=== PATIENT | female | born 1995 | race American Indian/Alaskan Native ===

== ENCOUNTER 2016-11-18 13:37 | Emergency (ER) | payer OTHER ==
--- NOTE | 2016-11-18 14:19 | EDM.PDOC ---
ED HPI ENT - General Chief Complaint: ENT Problem Stated Complaint: [id number] THROAT FEELS SWOLLEN Time Seen by Provider: 11/18/16 14:10 Source of Information: Reports: Patient, RN, RN notes reviewed History Limitations: Reports: No limitations - History of Present Illness INITIAL COMMENTS - FREE TEXT/NARRATIVE: C/O sore throat x2 days. 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 Admits to fevers and mild headache. Denies vomiting or abdominal pain. Timing/Duration: Reports: Constant, Getting worse Location: Reports: throat Quality: Reports: Ache Improves with: Reports: None Worsens with: Reports: None Associated Symptoms: Reports: no other symptoms Treatments CASHIER PAYMENTS RECEIVED: Reports: Acetaminophen - Related Data Allergies/ADRs: Allergies Allergy/AdvReac Type Severity Reaction Status Date / Time No Known Allergies Allergy Verified 08/26/16 17:17 Home Meds: Home Meds FLUoxetine HCl [Fluoxetine HCl] 20 mg PO DAILY 06/11/16 [History] Past Medical History - Past Health History Medical/Surgical History: Denies Medical/Surgical History HEENT History: Reports: None Other HEENT History: wears glasses Cardiovascular History: Reports: None Respiratory History: Reports: None Other Respiratory History: Bronchitis Gastrointestinal History: Reports: None Genitourinary History: Reports: Pyelonephritis, UTI, recurrent 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: Dysfunctional uterine bleeding Other OB/BYN History: LMP Aug 25 Musculoskeletal History: Reports: Back pain, chronic Neurological History: Reports: None Psychiatric History: Reports: Anxiety Endocrine/Metabolic History: Reports: Obesity/BMI 30+ Hematologic History: Reports: None Immunologic History: Reports: None Oncologic (Cancer) History: Reports: None Dermatologic History: Reports: None - Infectious Disease History Infectious Disease History: Reports: None - Past Surgical History HEENT Surgical History: Reports: None Social & Family History - Family History Family Medical History: Noncontributory - Tobacco Use Smoking Status *Q: Current Every Day Smoker Years of Tobacco use: 3 Packs/Tins Daily: 0.5 Used Tobacco, but Quit: No Month Tobacco Last Used: 09/2011 Second Hand Smoke Exposure: Yes - Caffeine Use Caffeine Use: Reports: Soda Other Caffeine Use: 2 diet mt. dew per day - Alcohol Use Days Per Week of Alcohol Use: 0 - Recreational Drug Use Recreational Drug Use: No Drug Use in Last 12 Months: Yes Recreational Drug Type: Reports: Marijuana/Hashish - Living Situation & Occupation Living situation: Reports: with significant other Occupation: unemployed ED ROS ENT - Review of Systems Review Of Systems: ROS reveals no pertinent complaints other than HPI. ED EXAM, ENT - Physical Exam Exam: See Below Exam Limited By: No limitations General Appearance: alert, WD/WN, no apparent distress, obese Eye Exam: bilateral eye: normal inspection Ears: normal external exam, normal canal, hearing grossly normal, normal TMs Nose: normal inspection, normal mucousa, no blood Mouth/Throat: Normal gums, Normal lips, Normal teeth, Tonsillar erythema, Tonsillar exudates Head: atraumatic, normocephalic Neck: normal inspection, supple, non-tender, full range of motion, lymphadenopathy (R) (upper/anterior). No: lymphadenopathy (L) Respiratory/Chest: no respiratory distress, lungs clear, normal breath sounds, no accessory muscle use, chest non-tender Cardiovascular: regular rate, rhythm Back: normal inspection Extremities: normal inspection Neurological: alert, oriented, CN II-XII intact, normal cognition, normal gait, no motor/sensory deficits Psychiatric: normal affect, normal mood Skin: Warm, Dry, Intact, Normal color, No rash Course - Vital Signs Last Recorded V/S: Last Vital Signs Temp 36.6 C 11/18/16 14:00 Pulse 98 11/18/16 14:00 Resp 16 11/18/16 14:00 BP 130/87 11/18/16 14:00 Pulse Ox 99 11/18/16 14:00 - Orders/Labs/Meds Labs: Rapid Strep: Positive Departure - Departure Time of Disposition: 14:38 Disposition: Home, Self-Care 01 Condition: good Clinical Impression: Strep pharyngitis Instructions: Strep Throat Forms: ED Department Discharge Additional Instructions: Rx: Amoxicillin 500mg Frequent saltwater gargles until improved.
[2016-11-18 14:26] VITALS: BP 130/87
== END 2016-11-18 14:44 | disposition home or self-care (01) ==
LOC: DL.ED 13:37
DX: J02.0 Streptococcal pharyngitis (principal); F41.9 Anxiety disorder, unspecified; Z87.440 Personal history of urinary (tract) infections; E66.9 Obesity, unspecified; F17.210 Nicotine dependence, cigarettes, uncomplicated
CPT/HCPCS: 87430; 99283

== ENCOUNTER 2016-12-02 22:43 | Emergency (ER) | payer OTHER ==
[2016-12-02] MEDS ORDERED: Ondansetron 4 MG/2 ML SDV IV ONE (22:54)
[2016-12-02] MEDS ORDERED: methylPREDNISolone Sodium Succinate 125 MG/2 ML SDV IVPUSH ONE (22:54)
[2016-12-02] MEDS ORDERED: Famotidine 20 MG/2 ML SDV IVPUSH ONE (22:55)
[2016-12-02] MEDS ORDERED: diphenhydrAMINE 50 MG/ML SDV IVPUSH ONE ×2 (22:55→23:59)
[2016-12-02] MEDS ORDERED: EPINEPHrine 1:1000 1 MG/ML SDV SUBCUT ONE (22:55)
[2016-12-02] MEDS ORDERED: Sodium Chloride 0.9% 1,000 ML IV SCH (23:00)
--- NOTE | 2016-12-02 23:07 | EDM.PDOC ---
<Asia Arevalo - Last Filed: 12/02/16 23:38> ED HPI Allergic Reaction - General Stated Complaint: FEELS LIKE CANT BREATHE Time Seen by Provider: 12/02/16 23:02 Source of Information: Reports: Patient History Limitations: Reports: No limitations - History of Present Illness INITIAL COMMENTS - FREE TEXT/NARRATIVE: Yuliet Gonsalez is a 21 year old female presenting to the ED with a one hour history of tongue swelling, facial rash, and shortness of breath. She was sitting at home watching TV when her symptoms developed. They have been getting worse since onset. She just took her last dose of a 10 day course of amoxicillin strep pharyngitis this morning. She denies any history of allergic reactions. She had associated nausea and an episode of diarrhea when symptoms started. - Related Data Allergies/ADRs: Allergies Allergy/AdvReac Type Severity Reaction Status Date / Time No Known Allergies Allergy Verified 12/02/16 23:07 Home Meds: Home Meds FLUoxetine HCl [Fluoxetine HCl] 20 mg PO DAILY 06/11/16 [History] Past Medical History - Past Health History Medical/Surgical History: Denies Medical/Surgical History HEENT History: Reports: None Other HEENT History: wears glasses Cardiovascular History: Reports: None Respiratory History: Reports: None Other Respiratory History: Bronchitis Gastrointestinal History: Reports: None Genitourinary History: Reports: Pyelonephritis, UTI, recurrent 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: Dysfunctional uterine bleeding Other OB/BYN History: LMP Aug 25 Musculoskeletal History: Reports: Back pain, chronic Neurological History: Reports: None Psychiatric History: Reports: Anxiety Endocrine/Metabolic History: Reports: Obesity/BMI 30+ Hematologic History: Reports: None Immunologic History: Reports: None Oncologic (Cancer) History: Reports: None Dermatologic History: Reports: None - Infectious Disease History Infectious Disease History: Reports: None - Past Surgical History HEENT Surgical History: Reports: None Social & Family History - Family History Family Medical History: Noncontributory - Tobacco Use Smoking Status *Q: Current Every Day Smoker Years of Tobacco use: 3 Packs/Tins Daily: 0.5 Used Tobacco, but Quit: No Month Tobacco Last Used: 09/2011 Second Hand Smoke Exposure: Yes - Caffeine Use Caffeine Use: Reports: Soda Other Caffeine Use: 2 diet mt. dew per day - Alcohol Use Days Per Week of Alcohol Use: 0 - Recreational Drug Use Recreational Drug Use: No Drug Use in Last 12 Months: Yes Recreational Drug Type: Reports: Marijuana/Hashish - Living Situation & Occupation Living situation: Reports: with significant other Occupation: unemployed ED ROS ALLERGIC REACTION - Review of Systems Review Of Systems: ROS reveals no pertinent complaints other than HPI. Constitutional: Reports: no symptoms. Denies: fever, chills HEENT: Reports: No symptoms. Denies: Vision change Respiratory: Reports: Shortness of Breath, Wheezing. Denies: Pleuritic Chest Pain, Cough Cardiovascular: Reports: No symptoms. Denies: Chest pain, Lightheadedness GI/Abdominal: Reports: Diarrhea, Nausea. Denies: Abdominal pain Musculoskeletal: Reports: no symptoms Skin: Reports: rash Neurological: Denies: Dizziness, Headache Psychiatric: Reports: No symptoms ED EXAM GENERAL NO PERIP PULSE - Physical Exam Exam: See Below Exam Limited By: No limitations General Appearance: alert, moderate distress Eye Exam: bilateral eye: PERRL Nose: normal inspection, normal mucosa Throat/Mouth: Normal voice, No airway compromise, Other (mild enlargment of tongue; Mallampati score of 2) Head: other (facial swelling in the maxillary area with associated erythematous macular rash over the face) Respiratory/Chest: wheezing (end expiratory wheezes to the bases bilaterally). No: respiratory distress, crackles, rales, rhonchi Cardiovascular: regular rate, rhythm GI/Abdominal: normal bowel sounds, soft, non tender, no distention Neurological: alert, oriented Skin Exam: Warm, Dry, Rash Lymphatic: no adenopathy Course - Vital Signs Last Recorded V/S: Last Vital Signs Temp 96.2 F 12/02/16 23:08 Pulse 66 12/02/16 23:08 Resp 20 12/02/16 23:08 BP 145/89 H 12/02/16 23:08 Pulse Ox 100 12/02/16 23:08 - Orders/Labs/Meds Orders: Active Orders 24 hr Category Date Time Status RT Aerosol Therapy [RC] ASDIRECTED Care 12/02/16 23:59 Active Sodium Chloride 0.9% [Normal Saline] 1,000 ml Med 12/02/16 23:00 Active IV ASDIRECTED Medication Orders Sodium Chloride (Normal Saline) 1,000 mls @ 999 mls/hr IV ASDIRECTED LEWIS Last Admin: 12/02/16 23:05 Dose: 999 mls/hr Meds: Medications Generic Name Dose Route Start Last Admin Trade Name Kayla PRN Reason Stop Dose Admin Sodium Chloride 1,000 mls @ 999 mls/hr 12/02/16 23:00 12/02/16 23:05 Normal Saline IV 999 mls/hr ASDIRECTED LEWIS Administration Discontinued Medications Generic Name Dose Route Start Last Admin Trade Name Kayla PRN Reason Stop Dose Admin Al Hydroxide/Mg Hydroxide 30 ml 12/02/16 23:37 12/02/16 23:48 Gi Cocktail PO 12/02/16 23:38 30 ml ONETIME ONE Administration Albuterol 2.5 mg 12/02/16 23:59 12/03/16 00:04 Proventil Neb Soln NEB 12/03/16 00:00 2.5 mg ONETIME ONE Administration Diphenhydramine HCl 25 mg 12/02/16 22:55 12/02/16 23:02 Benadryl IVPUSH 12/02/16 22:56 25 mg ONETIME ONE Administration Diphenhydramine HCl 25 mg 12/02/16 23:59 12/03/16 00:03 Benadryl IVPUSH 12/03/16 00:00 25 mg ONETIME ONE Administration Epinephrine HCl 0.5 mg 12/02/16 22:55 12/02/16 23:03 Adrenalin 1:1000 SUBCUT 12/02/16 22:56 0.5 mg ONETIME ONE Administration Famotidine 20 mg 12/02/16 22:55 12/02/16 23:06 Pepcid IVPUSH 12/02/16 22:56 20 mg ONETIME ONE Administration Methylprednisolone Sodium Succinate 125 mg 12/02/16 22:54 12/02/16 23:01 Solu-Medrol IVPUSH 12/02/16 22:55 125 mg ONETIME ONE Administration Ondansetron HCl 4 mg 12/02/16 22:54 12/02/16 23:06 Zofran IV 12/02/16 22:55 4 mg ONETIME ONE Administration - Re-Assessments/Exams Free Text/Narrative Re-Assessment/Exam: Patient was evaluated with a preliminary diagnosis of allergic reaction most likely secondary to amoxicillin; signs of impending anaphylaxis. IV access was obtained. NS one liter bolus hung. 0.5 mg subcutaneous epinephrine administered. Patient was also given IV pepcid, IV solumedrol, IV benadryl, and IV zofran. 12/02/16 23:08 Free Text/Narrative Re-Assessment/Exam: Patient was re-evaluated following administration of subq epinephrine, zofran, benadryl, solumedrol, and zofran. She has improvement of her symptoms and her airway shows improvement of tongue swelling, decreasing rash, and clear lung sounds. She continues to have difficulty with swallowing. A GI cocktail was ordered. Vitals stable. 12/02/16 23:38 Departure - Departure Disposition: Home, Self-Care 01 Clinical Impression: Allergic reaction Qualifiers: Encounter type: initial encounter Qualified Code(s): T78.40XA - Allergy, unspecified, initial encounter Instructions: Anaphylactic Reaction Additional Instructions: avoid penicillin or amoxicillin type medications benadryl 25mg every 6 hours x 48 hours then as needed Prednisone 20mg x1 in am then medrol dose pack per package instructions pepcid 20mg in am x 1 then continue twice daily for 6 days follow up if symptoms worsen - My Orders Last 24 Hours: My Active Orders 12/02/16 23:00 Sodium Chloride 0.9% [Normal Saline] 1,000 ml IV ASDIRECTED 12/02/16 23:59 RT Aerosol Therapy [RC] ASDIRECTED - Assessment/Plan Last 24 Hours: My Active Orders 12/02/16 23:00 Sodium Chloride 0.9% [Normal Saline] 1,000 ml IV ASDIRECTED 12/02/16 23:59 RT Aerosol Therapy [RC] ASDIRECTED <Delia Gonzalez - Last Filed: 12/03/16 00:23> Departure - Departure Time of Disposition: 00:21 Condition: good
[2016-12-02 23:11] VITALS: BP 145/89
[2016-12-02] MEDS ORDERED: GI Cocktail Oral Solution 30 ML PO ONE (23:37)
[2016-12-02] MEDS ORDERED: Albuterol 0.083% 2.5 MG/3 ML Neb Soln NEB ONE (23:59)
[2016-12-03] MEDS ORDERED: diphenhydrAMINE 25 MG Tab ONE (00:21)
[2016-12-03] MEDS ORDERED: predniSONE 20 MG Tab ONE (00:21)
[2016-12-03] MEDS ORDERED: predniSONE 20 MG Tab PO ONE (00:21)
[2016-12-03] MEDS ORDERED: Famotidine 20 MG Tab PO ONE (00:21)
[2016-12-03] MEDS ORDERED: Famotidine 20 MG Tab ONE (00:21)
[2016-12-03] MEDS ORDERED: diphenhydrAMINE 25 MG Tab PO ONE (00:21)
== END 2016-12-03 00:30 | disposition home or self-care (01) ==
LOC: DL.ED 22:43
DX: T78.40XA Allergy, unspecified, initial encounter (principal); F41.9 Anxiety disorder, unspecified; E66.9 Obesity, unspecified; F17.210 Nicotine dependence, cigarettes, uncomplicated; Z87.440 Personal history of urinary (tract) infections
CPT/HCPCS: 96361; 96372; 96374; 96375; 96376; 99285; A9270; J0171; J1200; J2405; J2930; J7030; J7620; S0028

== ENCOUNTER 2016-12-03 12:30 | Observation (INO) | payer OTHER ==
[2016-12-03] MEDS ORDERED: EPINEPHrine 1:1000 1 MG/ML SDV IM ONE ×2 (12:34→13:32)
[2016-12-03] MEDS ORDERED: diphenhydrAMINE 50 MG/ML SDV IVPUSH ONE (12:35)
[2016-12-03] MEDS ORDERED: methylPREDNISolone Sodium Succinate 125 MG/2 ML SDV IVPUSH ONE (12:35)
[2016-12-03] MEDS ORDERED: Albuterol 0.083% 2.5 MG/3 ML Neb Soln NEB ONE ×2 (12:36→13:38)
--- NOTE | 2016-12-03 12:43 | EDM.PDOC ---
ED HPI Allergic Reaction - General Stated Complaint: ANAFILACTIC SHOCK Time Seen by Provider: 12/03/16 12:35 Source of Information: Reports: Patient History Limitations: Reports: No limitations - History of Present Illness INITIAL COMMENTS - FREE TEXT/NARRATIVE: This 21 yo female patient reports to the ED with increased shortness of breath due to a possible allergic reaction to Amoxicillin. This patient was seen in the ED last night with similar symptoms. The patient reports she took her Benadryl about an hour prior to coming to the ED. The patient was given Epinephrine, Solumedrol, Benadryl, an H2 becca and a neb treatment yesterday while in the ED. The patient reports she took her last dose of amoxicillin yesterday prior to symptom onset. Symptom Onset Date: 12/02/16 Timing/Duration: Reports: Intermittent, Sudden onset Location, Skin: Reports: head, face, neck, chest Associated features: Reports: swelling Severity: severe Known identified source: possible/maybe Place of Occurrence: home Sick Contact: no Associated Symptoms: Reports: shortness of breath Similar symptoms previously: yes Improves with: Reports: None Worsens with: Reports: None Place of Occurrence: Reports: home Suspected Etiology: Reports: medication Recent Medical Care: yes - Related Data Allergies/ADRs: Allergies Allergy/AdvReac Type Severity Reaction Status Date / Time No Known Allergies Allergy Verified 12/02/16 23:07 Home Meds: Home Meds FLUoxetine HCl [Fluoxetine HCl] 20 mg PO DAILY 06/11/16 [History] Past Medical History - Past Health History Medical/Surgical History: Denies Medical/Surgical History HEENT History: Reports: None Other HEENT History: wears glasses Cardiovascular History: Reports: None Respiratory History: Reports: None Other Respiratory History: Bronchitis Gastrointestinal History: Reports: None Genitourinary History: Reports: Pyelonephritis, UTI, recurrent DAIRY 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: Dysfunctional uterine bleeding Other OB/BYN History: LMP Aug 25 Musculoskeletal History: Reports: Back pain, chronic Neurological History: Reports: None Psychiatric History: Reports: Anxiety Endocrine/Metabolic History: Reports: Obesity/BMI 30+ Hematologic History: Reports: None Immunologic History: Reports: None Oncologic (Cancer) History: Reports: None Dermatologic History: Reports: None - Infectious Disease History Infectious Disease History: Reports: None - Past Surgical History HEENT Surgical History: Reports: None Social & Family History - Family History Family Medical History: Noncontributory - Tobacco Use Smoking Status *Q: Current Every Day Smoker Years of Tobacco use: 3 Packs/Tins Daily: 0.5 Used Tobacco, but Quit: No Month Tobacco Last Used: 09/2011 Second Hand Smoke Exposure: Yes - Caffeine Use Caffeine Use: Reports: Soda Other Caffeine Use: 2 diet mt. dew per day - Alcohol Use Days Per Week of Alcohol Use: 0 - Recreational Drug Use Recreational Drug Use: No Drug Use in Last 12 Months: Yes Recreational Drug Type: Reports: Marijuana/Hashish - Living Situation & Occupation Living situation: Reports: with significant other Occupation: unemployed ED ROS ALLERGIC REACTION - Review of Systems Review Of Systems: ROS reveals no pertinent complaints other than HPI. ED EXAM GENERAL NO PERIP PULSE - Physical Exam Exam: See Below Exam Limited By: No limitations General Appearance: alert, WD/WN, severe distress, obese Eye Exam: bilateral eye: EOMI, normal inspection, PERRL Ears: normal external exam, normal canal, hearing grossly normal, normal TMs Nose: normal inspection, normal mucosa, no blood Throat/Mouth: Inflammation Head: atraumatic, normocephalic Neck: supple, non-tender, full range of motion Respiratory/Chest: no respiratory distress, lungs clear, normal breath sounds, no accessory muscle use, chest non-tender Cardiovascular: normal peripheral pulses, regular rate, rhythm, no edema, no gallop, no JVD, no murmur, no rub GI/Abdominal: normal bowel sounds, soft, non tender, no organomegaly, no distention, no abnormal bruit, no mass (Female) Exam: Deferred Rectal (Female) Exam: Deferred Back Exam: normal inspection, full range of motion, NT Extremities: normal inspection, normal range of motion, non-tender, normal capillary refill, no pedal edema Neurological: alert, oriented, CN II-XII intact, normal cognition, normal gait, normal reflexes, no motor/sensory deficits Psychiatric: normal affect, normal mood Skin Exam: Warm, Dry, Intact, Normal color, No rash Lymphatic: no adenopathy Course - Vital Signs Last Recorded V/S: Last Vital Signs Temp 36.0 C 12/03/16 13:00 Pulse 78 12/03/16 13:00 Resp 34 H 12/03/16 13:00 BP 130/82 12/03/16 13:00 Pulse Ox 100 12/03/16 13:00 - Orders/Labs/Meds Orders: Active Orders 24 hr Category Date Time Status RT Aerosol Therapy [RC] ASDIRECTED Care 12/03/16 12:36 Active RT Aerosol Therapy [RC] ASDIRECTED Care 12/03/16 13:38 Ordered Sodium Chloride 0.9% [Normal Saline] 500 ml Med 12/03/16 12:45 Active IV .BOLUS Medication Orders Sodium Chloride (Normal Saline) 500 mls @ 999 mls/hr IV .BOLUS LEWIS Last Admin: 12/03/16 12:57 Dose: 999 mls/hr Meds: Medications Generic Name Dose Route Start Last Admin Trade Name Freq PRN Reason Stop Dose Admin Sodium Chloride 500 mls @ 999 mls/hr 12/03/16 12:45 12/03/16 12:57 Normal Saline IV 999 mls/hr .BOLUS LEWIS Administration Discontinued Medications Generic Name Dose Route Start Last Admin Trade Name Freq PRN Reason Stop Dose Admin Albuterol 2.5 mg 12/03/16 12:36 12/03/16 12:53 Proventil Neb Soln NEB 12/03/16 12:37 2.5 mg ONETIME ONE Administration Albuterol 2.5 mg 12/03/16 13:38 Proventil Neb Soln NEB 12/03/16 13:39 ONETIME ONE Diphenhydramine HCl 50 mg 12/03/16 12:35 12/03/16 12:54 Benadryl IVPUSH 12/03/16 12:36 50 mg ONETIME ONE Administration Epinephrine HCl 0.5 mg 12/03/16 12:34 12/03/16 12:45 Adrenalin 1:1000 IM 12/03/16 12:35 0.5 mg ONETIME ONE Administration Epinephrine HCl 0.5 mg 12/03/16 13:32 12/03/16 13:35 Adrenalin 1:1000 IM 12/03/16 13:33 0.5 mg ONETIME ONE Administration Methylprednisolone Sodium Succinate 125 mg 12/03/16 12:35 12/03/16 12:54 Solu-Medrol IVPUSH 12/03/16 12:36 125 mg ONETIME ONE Administration Departure - Departure Time of Disposition: 13:40 Disposition: Admitted As Inpatient 64 Condition: fair Clinical Impression: Allergic reaction Qualifiers: Encounter type: initial encounter Qualified Code(s): T78.40XA - Allergy, unspecified, initial encounter Care Plan Goals: Dr. Allen was advised of the patient's history and treatments. Dr. Allen accepted the patient for continued evaluation and further management as an inpatient at [facility]. - My Orders Last 24 Hours: My Active Orders 12/03/16 12:36 RT Aerosol Therapy [RC] ASDIRECTED 12/03/16 12:45 Sodium Chloride 0.9% [Normal Saline] 500 ml IV .BOLUS 12/03/16 13:38 RT Aerosol Therapy [RC] ASDIRECTED - Assessment/Plan Last 24 Hours: My Active Orders 12/03/16 12:36 RT Aerosol Therapy [RC] ASDIRECTED 12/03/16 12:45 Sodium Chloride 0.9% [Normal Saline] 500 ml IV .BOLUS 12/03/16 13:38 RT Aerosol Therapy [RC] ASDIRECTED
[2016-12-03] MEDS ORDERED: Sodium Chloride 0.9% 500 ML IV SCH (12:45)
[2016-12-03] MEDS ORDERED: Ondansetron 4 MG Tab.DIS PO PRN (14:18)
[2016-12-03] MEDS ORDERED: Acetaminophen 325 MG Tab PO PRN (14:18)
[2016-12-03] MEDS ORDERED: Sodium Chloride 0.9% 10 ML Syringe FLUSH PRN (14:18)
[2016-12-03] MEDS ORDERED: Albuterol 0.083% 2.5 MG/3 ML Neb Soln NEB PRN (14:24)
[2016-12-03] MEDS ORDERED: EPINEPHrine 1:1000 1 MG/ML SDV IM PRN (14:25)
[2016-12-03] MEDS ORDERED: Sodium Chloride 0.9% 1,000 ML IV SCH (14:30)
--- NOTE | 2016-12-03 14:33 | PCM.HP ---
H&P History of Present Illness - General Date of Service: 12/03/16 Admit Problem/Dx: Admission Diagnosis/Problem Admission Diagnosis/Problem Allergic urticaria Source of Information: Patient, Family - History of Present Illness Initial Comments - Free Text/Narative: The patient is a 21-year-old lady with a history for anxiety. She has no history of asthma or other allergy related conditions. the patient developed a sore throat and above that 10 days prior to admission the patient was diagnosed with the pharyngitis. The patient was started on amoxicillin. The patient took last dose on 02 December During the night of 02 December the patient developed shortness of breath difficulty talking and breathing was brought to the emergency room. She was diagnosed with an allergic reaction, was given Solu Medrol Pepcid Benadryl and discharged in a stable condition. on 03 December in the morning she developed "Tongue swelling" difficulty breathing and talking, family also noted hives and facial swelling. she was brought back to the emergency room and was again treated with epinephrine Solu Medrol Pepcid Benadryl albuterol The patient improved but about an hour later again was feeling good the throat was "closing" Currently the patient has no rash, breathing comfortably but appears anxious. The patient and the family denies any other unusual exposure to food, drinks or environment - Related Data Allergies/Adverse Reactions: Allergies Allergy/AdvReac Type Severity Reaction Status Date / Time amoxicillin Allergy Anaphylactic Verified 12/03/16 14:15 Shock Home Medications: Home Meds FLUoxetine HCl [Fluoxetine HCl] 20 mg PO DAILY 06/11/16 [History] Past Medical History HEENT History: Reports: None Other HEENT History: wears glasses Cardiovascular History: Reports: None Respiratory History: Reports: None Other Respiratory History: Bronchitis Gastrointestinal History: Reports: None Genitourinary History: Reports: Pyelonephritis, UTI, recurrent BACKBREAKER History: Reports: Dysfunctional uterine bleeding Other OB/BYN History: LMP Aug 25 Musculoskeletal History: Reports: Back pain, chronic Neurological History: Reports: None Psychiatric History: Reports: Anxiety Endocrine/Metabolic History: Reports: Obesity/BMI 30+ Hematologic History: Reports: None Immunologic History: Reports: None Oncologic (Cancer) History: Reports: None Dermatologic History: Reports: None - Infectious Disease History Infectious Disease History: Reports: None - Past Surgical History HEENT Surgical History: Reports: None Social & Family History - Family History Family Medical History: Noncontributory HEENT: Denies: Allergic rhinitis Respiratory: Denies: Asthma Dermatologic: Denies: Angiodema - Tobacco Use Smoking Status *Q: Current Every Day Smoker Years of Tobacco use: 3 Packs/Tins Daily: 0.5 Used Tobacco, but Quit: No Month Tobacco Last Used: 09/2011 Second Hand Smoke Exposure: Yes - Caffeine Use Caffeine Use: Reports: Soda Other Caffeine Use: 2 diet mt. dew per day - Alcohol Use Days Per Week of Alcohol Use: 0 - Recreational Drug Use Recreational Drug Use: No Drug Use in Last 12 Months: Yes Recreational Drug Type: Reports: Marijuana/Hashish - Living Situation & Occupation Living situation: Reports: with significant other Occupation: unemployed H&P Review of Systems - Review of Systems: Review Of Systems: See Below General: Denies: fever, chills Pulmonary: Reports: Shortness of Breath, Wheezing Cardiovascular: Reports: palpitations. Denies: edema Exam - Exam Exam: See Below - Vital Signs Vital Signs: Last Vital Signs Temp 36.0 C 12/03/16 13:00 Pulse 106 H 12/03/16 13:46 Resp 34 H 12/03/16 13:00 BP 130/82 12/03/16 13:00 Pulse Ox 100 12/03/16 13:00 Weight: 99.79 kg - Exam General: alert, oriented HEENT: EOMI, Mucosa moist & pink, Other (tonsils present, but no significant erythema, speech is fluent and easy to understand) Neck: supple, trachea midline Lungs: Clear to auscultation, Normal respiratory effort, Other (able to talk in full sentences, walking in the room with no significant shortness of breath). No: Rales, Rhonchi, Stridor Cardiovascular: regular rate, regular rhythm, tachycardia (mildly) Abdomen: soft, other (obese) Extremities: normal inspection. No: edema Skin: warm, dry, intact. No: rash Neuro Extensive - Mental Status: alert, oriented x3, normal mood/affect, normal cognition Psychiatric: alert, normal affect, normal mood *Q Meaningful Use (ADM) - VTE *Q VTE Criteria *Q: - Stroke *Q Stroke Criteria *Q: - AMI *Q AMI Criteria *Q: - Problem List (1) Allergic reaction SNOMED Code(s): 517625375 ICD Code: T78.40XA - ALLERGY, UNSPECIFIED, INITIAL ENCOUNTER Status: Acute Current Visit: Yes Qualifiers: Encounter type: initial encounter Qualified Code(s): T78.40XA - Allergy, unspecified, initial encounter Problem List Initiated/Reviewed/Updated: Yes Orders Last 24hrs: Active Orders 24 hr Category Date Time Status Patient Status [ADT] Routine ADT 12/03/16 14:18 Ordered Ambulate [RC] PER UNIT ROUTINE Care 12/03/16 14:19 Ordered Antiembolic Devices [RC] PER UNIT ROUTINE Care 12/03/16 14:21 Ordered Oxygen Therapy [RC] PRN Care 12/03/16 14:18 Ordered Peripheral IV Care [RC] . DIRECTED Care 12/03/16 14:21 Ordered Pulse Oximetry [RC] CONTINUOUS Care 12/03/16 14:19 Ordered RT Aerosol Therapy [RC] ASDIRECTED Care 12/03/16 14:25 Ordered Up With Assistance [RC] ASDIRECTED Care 12/03/16 14:18 Ordered VTE/DVT Education [RC] PER UNIT ROUTINE Care 12/03/16 14:18 Ordered Vital Signs [RC] Q4H Care 12/03/16 14:18 Ordered Clear Liquid Diet [DIET] Diet 12/03/16 Dinner Ordered BASIC METABOLIC PANEL,BMP [CHEM] AM Lab 12/04/16 05:15 Ordered CBC WITH AUTO DIFF [HEME] AM Lab 12/04/16 05:15 Ordered Acetaminophen [Tylenol] Med 12/03/16 14:18 Ordered 650 mg PO Q4H PRN Albuterol [Proventil Neb Soln] Med 12/03/16 14:24 Ordered 2.5 mg NEB Q4HRRT PRN EPINEPHrine [Adrenalin 1:1000] Med 12/03/16 14:25 Ordered 0.5 mg IM .Q4H PRN FLUoxetine [PROzac] Med 12/04/16 09:00 Ordered 20 mg PO DAILY Famotidine [Pepcid] Med 12/03/16 14:30 Ordered 20 mg IVPUSH .Q8H Heparin Sodium Med 12/03/16 22:00 Ordered 5,000 units SUBCUT Q8HR Ondansetron [Zofran ODT] Med 12/03/16 14:18 Ordered 4 mg PO Q6H PRN Sodium Chloride 0.9% [Normal Saline] 1,000 ml Med 12/03/16 14:30 Ordered IV ASDIRECTED Sodium Chloride 0.9% [Saline Flush] Med 12/03/16 14:18 Ordered 10 ml FLUSH ASDIRECTED PRN diphenhydrAMINE [Benadryl] Med 12/03/16 14:30 Ordered 25 mg IVPUSH Q8H methylPREDNISolone Sod Succ [Solu-MEDROL] Med 12/03/16 14:30 Ordered 40 mg IVPUSH Q8H Antiembolic Hose [OM.PC] Per Unit Routine Oth 12/03/16 14:19 Ordered Peripheral IV Insertion Adult [OM.PC] Routine Oth 12/03/16 14:18 Ordered Resuscitation Status Routine Resus Stat 12/03/16 14:18 Ordered Medication Orders Acetaminophen (Tylenol) 650 mg PO Q4H PRN PRN Reason: Pain (Mild 1-3)/fever Albuterol (Proventil Neb Soln) 2.5 mg NEB Q4HRRT PRN PRN Reason: sob Diphenhydramine HCl (Benadryl) 25 mg IVPUSH Q8H [facility] Epinephrine HCl (Adrenalin 1:1000) 0.5 mg IM .Q4H PRN PRN Reason: hypoxemia, severe SOB, stridor Famotidine (Pepcid) 20 mg IVPUSH .Q8H [facility] Fluoxetine HCl (Prozac) 20 mg PO DAILY [facility] Heparin Sodium (Porcine) (Heparin Sodium) 5,000 units SUBCUT Q8HR [facility] Sodium Chloride (Normal Saline) 1,000 mls @ 75 mls/hr IV ASDIRECTED [facility] Methylprednisolone Sodium Succinate (Solu-Medrol) 40 mg IVPUSH Q8H [facility] Ondansetron HCl (Zofran Odt) 4 mg PO Q6H PRN PRN Reason: nausea, able to take PO Sodium Chloride (Saline Flush) 10 ml FLUSH ASDIRECTED PRN PRN Reason: Keep Vein Open Assessment/Plan Comment:: the patient was diagnosed with strep throat, was given amoxicillin. About 10 days later the patient had repeated episodes of the tongue swelling, stridor and shortness of breath, facial swelling, erythematous rash of the face and upper extremities 1. recurrent allergic reaction likely secondary to amoxicillin, family could not identify other unusual exposure the patient received multiple doses of Solu-Medrol, Benadryl, famotidine, albuterol, IM epinephrine it appears that the allergic reaction was severe and recurrent despite treatment We'll admit the patient and follow closely We'll continue treatment with scheduled Benadryl famotidine albuterol and Solu Medrol Monitor respiratory status, vital signs, skin symptoms Use IM epinephrine for severe airway reaction 2. anxiety Will follow the patient closely, steroids and epinephrine can exacerbate this 3. DVT prophylaxis will be with mobilization
[2016-12-03] MEDS ORDERED: diphenhydrAMINE 50 MG Cap PO PRN (14:41)
[2016-12-03] MEDS: Famotidine 20 MG/2 ML SDV IVPUSH SCH ×2 (16:18→22:56)
[2016-12-03] MEDS: diphenhydrAMINE 50 MG/ML SDV IVPUSH SCH ×2 (16:19→22:54)
[2016-12-03] MEDS: methylPREDNISolone Sodium Succinate 40 MG/1 ML SDV IVPUSH SCH ×2 (16:24→22:56)
[2016-12-03] MEDS: Heparin Sodium 5,000 Units/ML Vial SUBCUT SCH (22:58)
[2016-12-04] MEDS: Famotidine 20 MG/2 ML SDV IVPUSH SCH (06:17)
[2016-12-04] MEDS: methylPREDNISolone Sodium Succinate 40 MG/1 ML SDV IVPUSH SCH (06:17)
[2016-12-04] MEDS: Heparin Sodium 5,000 Units/ML Vial SUBCUT SCH (06:17)
[2016-12-04] MEDS: diphenhydrAMINE 50 MG/ML SDV IVPUSH SCH (06:17)
[2016-12-04 06:53] LABS: CHLORIDE,CL 104 mmol/L (101-111); SODIUM,NA 136 mmol/L (135-145)
[2016-12-04 07:11] VITALS: BP 118/47
[2016-12-04] MEDS ORDERED: FLUoxetine 10 MG Cap PO SCH (09:00)
--- NOTE | 2016-12-04 10:27 | PCM.DCSUM1 ---
Discharge Summary - Hospital Course Free Text/Narrative:: the patient is a 21-year-old lady who has been on amoxicillin for pharyngitis The patient then developed a sudden onset of the wheezing shortness of breath, hives Came to the emergency room was diagnosed with allergic reaction likely secondary to amoxicillin. She was discharged with Benadryl and Medrol The symptoms have returned and the patient came into the emergency room The patient subsequently received the IV steroids multiple doses of IM epinephrine admitted the overnight and the patient remained stable since admission the patient had no further rash or hives Respiratory and hemodynamic status remained stable The patient will be discharged with famotidine Benadryl tapering dose steroid She will have a prescription for EpiPen for as needed use For now the most likely offending agent is amoxicillin She was told to remember this is an allergy - Discharge Data Discharge Date: 12/04/16 Discharge Disposition: Home, Self-Care 01 Condition: Good - Discharge Diagnosis/Problem(s) (1) Allergic reaction SNOMED Code(s): 022953038 ICD Code: T78.40XA - ALLERGY, UNSPECIFIED, INITIAL ENCOUNTER Status: Acute Current Visit: Yes Qualifiers: Encounter type: initial encounter Qualified Code(s): T78.40XA - Allergy, unspecified, initial encounter - Patient Instructions Diet: Heart Healthy Diet Activity: As Tolerated - Discharge Plan Prescriptions/Med Rec: EPINEPHrine [Epipen] 0.3 mg IM ONETIME PRN #1 pen PRN Reason: sob, hives, wheezing Famotidine [Pepcid] 20 mg PO BID #10 tablet diphenhydrAMINE [Benadryl] 25 mg PO TID #6 cap methylPREDNISolone [Medrol] 4 mg PO . DIRECTED #7 tab Home Medications: Home Meds FLUoxetine HCl [Fluoxetine HCl] 20 mg PO DAILY 06/11/16 [History] EPINEPHrine [Epipen] 0.3 mg IM ONETIME PRN #1 pen 12/04/16 [Rx] Famotidine [Pepcid] 20 mg PO BID #10 tablet 12/04/16 [Rx] diphenhydrAMINE [Benadryl] 25 mg PO TID #6 cap 12/04/16 [Rx] methylPREDNISolone [Medrol] 4 mg PO . DIRECTED #7 tab 12/04/16 [Rx] - Discharge Summary/Plan Comment DC Time >30 min.: No - General Info Date of Service: 12/04/16 - Review of Systems General: Denies: Fever Pulmonary: Denies: shortness of breath, cough, wheezing Cardiovascular: Denies: Chest Pain Gastrointestinal: Denies: Abdominal pain Neurological: Denies: Confusion - Patient Data Vitals - Most Recent: Last Vital Signs Temp 36.8 C 12/04/16 07:00 Pulse 60 12/04/16 07:00 Resp 20 12/04/16 07:00 BP 118/47 L 12/04/16 07:00 Pulse Ox 97 12/04/16 07:00 Weight - Most Recent: 99.79 kg I&O - Last 24 hours: Intake & Output 12/03/16 12/04/16 12/04/16 22:59 06:59 14:59 Intake Total 441 1649 Balance 441 1649 Lab Results - Last 24 hrs: Laboratory Results - last 24 hr 12/04/16 12/04/16 Range/Units 06:17 06:17 WBC 11.9 H (5.0-10.0) 10^3/uL RBC 4.11 L (4.2-5.4) 10^6/uL Hgb 12.3 (12.0-16.0) g/dL Hct 37.2 (37.0-47.0) % MCV 90.5 (80-100) fL MCH 29.9 (27.0-34.0) pg MCHC 33.1 (33.0-35.0) g/dL Plt Count 320 (150-450) 10^3/uL Neut % (Auto) 83.3 H (42.2-75.2) % Lymph % (Auto) 12.7 L (20.5-50.1) % [place] % (Auto) 4.0 (2-8) % Eos % (Auto) 0.0 L (1.0-3.0) % Baso % (Auto) 0.0 (0.0-1.0) % Sodium 136 (135-145) mmol/L Potassium 4.3 (3.6-5.0) mmol/L Chloride 104 (101-111) mmol/L Carbon Dioxide 25.0 (21.0-31.0) mmol/L Anion Gap 11.3 BUN 11 (7-18) mg/dL Creatinine 0.7 (0.6-1.3) mg/dL Est Cr Clr Drug Dosing 130.63 mL/min Estimated GFR (MDRD) > 60 Glucose 133 H (74-105) mg/dL Calcium 8.7 (8.4-10.2) mg/dl Med Orders - Current: Current Medications Acetaminophen (Tylenol) 650 mg PO Q4H PRN PRN Reason: Pain (Mild 1-3)/fever Last Admin: 12/03/16 16:28 Dose: 650 mg Albuterol (Proventil Neb Soln) 2.5 mg NEB Q4HRRT PRN PRN Reason: sob Last Admin: 12/03/16 18:12 Dose: 2.5 mg Diphenhydramine HCl (Benadryl) 25 mg IVPUSH Q8HR [facility] Last Admin: 12/04/16 06:17 Dose: 25 mg Diphenhydramine HCl (Benadryl) 25 mg PO Q6H PRN PRN Reason: Anxiety Epinephrine HCl (Adrenalin 1:1000) 0.5 mg IM Q4H PRN PRN Reason: hypoxemia, severe SOB, stridor Last Admin: 12/03/16 18:14 Dose: 0.5 mg Famotidine (Pepcid) 20 mg IVPUSH Q8HR [facility] Last Admin: 12/04/16 06:17 Dose: 20 mg Fluoxetine HCl (Prozac) 20 mg PO DAILY [facility] Last Admin: 12/04/16 09:32 Dose: 20 mg Heparin Sodium (Porcine) (Heparin Sodium) 5,000 units SUBCUT Q8HR [facility] Last Admin: 12/04/16 06:17 Dose: 5,000 units Sodium Chloride (Normal Saline) 1,000 mls @ 75 mls/hr IV ASDIRECTED [facility] Last Admin: 12/03/16 18:20 Dose: 75 mls/hr Methylprednisolone Sodium Succinate (Solu-Medrol) 40 mg IVPUSH Q8HR [facility] Last Admin: 12/04/16 06:17 Dose: 40 mg Ondansetron HCl (Zofran Odt) 4 mg PO Q6H PRN PRN Reason: nausea, able to take PO Sodium Chloride (Saline Flush) 10 ml FLUSH ASDIRECTED PRN PRN Reason: Keep Vein Open Last Admin: 12/03/16 16:19 Dose: 10 ml Discontinued Medications Albuterol (Proventil Neb Soln) 2.5 mg NEB ONETIME ONE Stop: 12/03/16 12:37 Last Admin: 12/03/16 12:53 Dose: 2.5 mg Albuterol (Proventil Neb Soln) 2.5 mg NEB ONETIME ONE Stop: 12/03/16 13:39 Last Admin: 12/03/16 13:49 Dose: 2.5 mg Diphenhydramine HCl (Benadryl) 50 mg IVPUSH ONETIME ONE Stop: 12/03/16 12:36 Last Admin: 12/03/16 12:54 Dose: 50 mg Epinephrine HCl (Adrenalin 1:1000) 0.5 mg IM ONETIME ONE Stop: 12/03/16 12:35 Last Admin: 12/03/16 12:45 Dose: 0.5 mg Epinephrine HCl (Adrenalin 1:1000) 0.5 mg IM ONETIME ONE Stop: 12/03/16 13:33 Last Admin: 12/03/16 13:35 Dose: 0.5 mg Sodium Chloride (Normal Saline) 500 mls @ 999 mls/hr IV .BOLUS [facility] Last Admin: 12/03/16 12:57 Dose: 999 mls/hr Methylprednisolone Sodium Succinate (Solu-Medrol) 125 mg IVPUSH ONETIME ONE Stop: 12/03/16 12:36 Last Admin: 12/03/16 12:54 Dose: 125 mg - Exam Quality Assessment: Denies: supplemental oxygen General: Reports: alert, oriented Neck: Reports: supple Lungs: Reports: Clear to auscultation, Normal respiratory effort Cardiovascular: Reports: Regular Rate, Regular Rhythm Abdomen: Reports: bowel sounds present, soft, no tenderness, no distension Extremities: Reports: no edema, normal pulses Skin: Reports: warm, dry, intact. Denies: rash *Q Meaningful Use (DIS) - VTE *Q VTE Criteria *Q: - Stroke *Q Stroke Criteria *Q: - AMI *Q AMI Criteria *Q:
== END 2016-12-04 10:55 | disposition home or self-care (01) ==
LOC: DL.ED 12:30 → DL.MS 13:42 → UNDOADMOB 13:42 → DL.MS 14:18
PROVIDERS: ADMIT Internal Medicine; ATTEND Internal Medicine
DX: L50.0 Allergic urticaria (principal); T36.0X5A Adverse effect of penicillins, initial encounter; R06.2 Wheezing; R06.02 Shortness of breath; J02.0 Streptococcal pharyngitis; E66.9 Obesity, unspecified; Z68.30 Body mass index [BMI] 30.0-30.9, adult; G89.29 Other chronic pain; M54.9 Dorsalgia, unspecified; F17.210 Nicotine dependence, cigarettes, uncomplicated; Z79.899 Other long term (current) drug therapy; F12.90 Cannabis use, unspecified, uncomplicated; F41.9 Anxiety disorder, unspecified; T78.40XA Allergy, unspecified, initial encounter; Z87.440 Personal history of urinary (tract) infections
CPT/HCPCS: 36415; 80048; 85025; 94640; 96361; 96372; 96374; 96375; 96376; 99285; A9270; G0378; J0171; J1200; J1644; J2405; J2920; J2930; J7030; J7040; J7050; J7620; S0028

== ENCOUNTER 2017-01-07 12:23 | Emergency (ER) | payer OTHER ==
[2017-01-07] MEDS ORDERED: Sodium Chloride 0.9% 1,000 ML IV ONE (12:49)
[2017-01-07 13:15] LABS: CHLORIDE,CL 101 mmol/L (101-111); SODIUM,NA 138 mmol/L (135-145)
[2017-01-07 13:16] LABS: ACETAMINOPHEN < 10
--- NOTE | 2017-01-07 13:25 | EDM.PDOC ---
ED HPI GENERAL MEDICAL PROBLEM - General Chief Complaint: General Stated Complaint: ANXIETY Time Seen by Provider: 01/07/17 13:10 Source of Information: Reports: Patient History Limitations: Reports: No Limitations - History of Present Illness INITIAL COMMENTS - FREE TEXT/NARRATIVE: This 21 yo female patient reports to the ED today. The patient reports she does not know why she is here. When asked a second time, the patient reports she is "sick". Further questioning resulted in the patient reporting she has had painful urination for the past month. The patient reports she was seen for the painful urination. The patient reports she has not followed up with her primary care facility. The patient reports she is supposed to be on Fluoxitine, but is currently out of medication. The patient reports she filled her medication last month. The patient then reports that her heart is "racing". The patient was questioned about the racing heart and her response was that it is not happening now, but it was earlier. Onset: Today Duration: Constant Location: Reports: Other (unknown due to patient's vague answers) Severity: Mild Improves with: Reports: None Worsens with: Reports: None Associated Symptoms: Reports: No Other Symptoms - Related Data Allergies Allergy/AdvReac Type Severity Reaction Status Date / Time amoxicillin Allergy Severe Anaphylactic Verified 01/07/17 12:29 Shock Home Meds: Home Meds FLUoxetine HCl [Fluoxetine HCl] 10 mg PO DAILY 06/11/16 [History] EPINEPHrine [Epipen] 0.3 mg IM ONETIME PRN #1 pen 12/04/16 [Rx] Past Medical History - Past Health History Medical/Surgical History: Denies Medical/Surgical History HEENT History: Reports: None Other HEENT History: wears glasses Cardiovascular History: Reports: None Respiratory History: Reports: None Other Respiratory History: Bronchitis Gastrointestinal History: Reports: None Genitourinary History: Reports: Pyelonephritis, UTI, Recurrent 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 Other OB/BYN History: LMP Aug 25 Musculoskeletal History: Reports: Back Pain, Chronic Neurological History: Reports: None Psychiatric History: Reports: Anxiety Endocrine/Metabolic History: Reports: Obesity/BMI 30+ Hematologic History: Reports: None Immunologic History: Reports: None Oncologic (Cancer) History: Reports: None Dermatologic History: Reports: None - Infectious Disease History Infectious Disease History: Reports: None - Past Surgical History HEENT Surgical History: Reports: None Social & Family History - Family History Family Medical History: Noncontributory - Tobacco Use Smoking Status *Q: Former Smoker Years of Tobacco use: 3 Packs/Tins Daily: 0.5 Used Tobacco, but Quit: Yes Month Tobacco Last Used: August Second Hand Smoke Exposure: Yes - Caffeine Use Caffeine Use: Reports: Coffee, Energy Drinks, Soda Other Caffeine Use: 2 diet mt. dew per day Caffeine Use Comment: 3 sodas a day - Alcohol Use Days Per Week of Alcohol Use: 0 - Recreational Drug Use Recreational Drug Use: No Drug Use in Last 12 Months: Yes Recreational Drug Type: Reports: Marijuana/Hashish - Living Situation & Occupation Living situation: Reports: with Significant Other Occupation: Unemployed ED ROS GENERAL - Review of Systems Review Of Systems: ROS reveals no pertinent complaints other than HPI. ED EXAM, GENERAL - Physical Exam Exam: See Below Exam Limited By: No Limitations General Appearance: Alert, WD/WN, No Apparent Distress, Obese, Other (very slow and vague when answering questions) Eye Exam: Bilateral Eye: EOMI, Normal Inspection, PERRL Ears: Normal External Exam, Normal Canal, Hearing Grossly Normal, Normal TMs Nose: Normal Inspection, Normal Mucosa, No Blood Throat/Mouth: Normal Inspection, Normal Lips, Normal Teeth, Normal Gums, Normal Oropharynx, Normal Voice, No Airway Compromise Head: Atraumatic, Normocephalic Neck: Normal Inspection, Supple, Non-Tender, Full Range of Motion Respiratory/Chest: No Respiratory Distress, Lungs Clear, Normal Breath Sounds, No Accessory Muscle Use, Chest Non-Tender Cardiovascular: Normal Peripheral Pulses, Regular Rate, Rhythm, No Edema, No Gallop, No JVD, No Murmur, No Rub GI/Abdominal: Normal Bowel Sounds, Soft, Non-Tender, No Organomegaly, No Distention, No Abnormal Bruit, No Mass, Other (obese) (Female) Exam: Deferred Rectal (Female) Exam: Deferred Back Exam: Normal Inspection, Full Range of Motion, NT Extremities: Normal Inspection, Normal Range of Motion, Non-Tender, Normal Capillary Refill, No Pedal Edema Neurological: Alert, Oriented, CN II-XII Intact, Normal Cognition, Normal Gait, Normal Reflexes, No Motor/Sensory Deficits Psychiatric: Depressed Mood, Flat Affect Skin Exam: Warm, Dry, Intact, Normal Color, No Rash Lymphatic: No Adenopathy Course - Vital Signs Last Recorded V/S: Last Vital Signs Temp 36.6 C 01/07/17 14:21 Pulse 74 01/07/17 14:21 Resp 18 01/07/17 14:21 BP 132/67 01/07/17 14:21 Pulse Ox 100 01/07/17 14:21 - Orders/Labs/Meds Labs: Laboratory Tests 01/07/17 01/07/17 01/07/17 Range/Units 12:46 12:46 13:25 WBC 9.7 (5.0-10.0) 10^3/uL RBC 4.92 (4.2-5.4) 10^6/uL Hgb 14.6 (12.0-16.0) g/dL Hct 43.9 (37.0-47.0) % MCV 89.2 (80-100) fL MCH 29.7 (27.0-34.0) pg MCHC 33.3 (33.0-35.0) g/dL Plt Count 404 (150-450) 10^3/uL Neut % (Auto) 58.6 (42.2-75.2) % Lymph % (Auto) 31.6 (20.5-50.1) % Graham % (Auto) 8.4 H (2-8) % Eos % (Auto) 1.2 (1.0-3.0) % Baso % (Auto) 0.2 (0.0-1.0) % Sodium 138 (135-145) mmol/L Potassium 3.9 (3.6-5.0) mmol/L Chloride 101 (101-111) mmol/L Carbon Dioxide 26.0 (21.0-31.0) mmol/L Anion Gap 14.9 BUN 8 (7-18) mg/dL Creatinine 0.8 (0.6-1.3) mg/dL Est Cr Clr Drug Dosing 110.33 mL/min Estimated GFR (MDRD) > 60 BUN/Creatinine Ratio 10.00 Glucose 91 (74-105) mg/dL Calcium 9.4 (8.4-10.2) mg/dl Magnesium 1.8 (1.8-2.5) mg/dL Total Bilirubin 1.2 H (0.2-1.0) mg/dL AST 25 (10-42) IU/L ALT 26 (10-60) IU/L Alkaline Phosphatase 102 (42-121) IU/L Total Protein 8.0 (6.7-8.2) g/dl Albumin 4.5 (3.2-5.5) g/dl Globulin 3.5 Albumin/Globulin Ratio 1.29 Urine Color (YELLOW) Urine Appearance (CLEAR) Urine pH (5.0-9.0) Ur Specific [place] (1.005-1.030) Urine Protein (NEGATIVE) Urine Glucose (UA) (NEGATIVE) Urine Ketones (NEGATIVE) Urine Occult Blood (NEGATIVE) Urine Nitrite (NEGATIVE) Urine Bilirubin (NEGATIVE) Urine Urobilinogen (0.2-1.0) mg/dL Ur Leukocyte Esterase (NEGATIVE) Urine RBC /HPF Urine WBC (0-5/HPF) /HPF Ur Epithelial Cells /HPF Amorphous Sediment (0/HPF) /HPF Urine Bacteria (0-FEW/HPF) /HPF Urine HCG, Qual Salicylates < 4 Urine Opiates Screen Negative (NEGATIVE) Ur Oxycodone Screen Negative (NEGATIVE) Urine Methadone Screen Negative (NEGATIVE) Acetaminophen < 10 Ur Barbiturates Screen Negative (NEGATIVE) U Tricyclic Antidepress Negative (NEGATIVE) Ur Phencyclidine Scrn Negative (NEGATIVE) Ur Amphetamine Screen Negative (NEGATIVE) U Methamphetamines Scrn Negative (NEGATIVE) Urine MDMA Screen Negative (NEGATIVE) U Benzodiazepines Scrn Negative (NEGATIVE) Urine Cocaine Screen Negative (NEGATIVE) U Marijuana (THC) Screen Negative (NEGATIVE) Ethyl Alcohol 6 mg/dL 01/07/17 01/07/17 Range/Units 13:25 13:25 WBC (5.0-10.0) 10^3/uL RBC (4.2-5.4) 10^6/uL Hgb (12.0-16.0) g/dL Hct (37.0-47.0) % MCV (80-100) fL MCH (27.0-34.0) pg MCHC (33.0-35.0) g/dL Plt Count (150-450) 10^3/uL Neut % (Auto) (42.2-75.2) % Lymph % (Auto) (20.5-50.1) % Graham % (Auto) (2-8) % Eos % (Auto) (1.0-3.0) % Baso % (Auto) (0.0-1.0) % Sodium (135-145) mmol/L Potassium (3.6-5.0) mmol/L Chloride (101-111) mmol/L Carbon Dioxide (21.0-31.0) mmol/L Anion Gap BUN (7-18) mg/dL Creatinine (0.6-1.3) mg/dL Est Cr Clr Drug Dosing mL/min Estimated GFR (MDRD) BUN/Creatinine Ratio Glucose (74-105) mg/dL Calcium (8.4-10.2) mg/dl Magnesium (1.8-2.5) mg/dL Total Bilirubin (0.2-1.0) mg/dL AST (10-42) IU/L ALT (10-60) IU/L Alkaline Phosphatase (42-121) IU/L Total Protein (6.7-8.2) g/dl Albumin (3.2-5.5) g/dl Globulin Albumin/Globulin Ratio Urine Color Yellow (YELLOW) Urine Appearance Clear (CLEAR) Urine pH 7.0 (5.0-9.0) Ur Specific [place] 1.015 (1.005-1.030) Urine Protein Negative (NEGATIVE) Urine Glucose (UA) Negative (NEGATIVE) Urine Ketones 40 H (NEGATIVE) Urine Occult Blood Trace-intact H (NEGATIVE) Urine Nitrite Negative (NEGATIVE) Urine Bilirubin Negative (NEGATIVE) Urine Urobilinogen 4.0 H (0.2-1.0) mg/dL Ur Leukocyte Esterase Negative (NEGATIVE) Urine RBC 0-5 /HPF Urine WBC 0-5 (0-5/HPF) /HPF Ur Epithelial Cells Moderate H /HPF Amorphous Sediment Rare (0/HPF) /HPF Urine Bacteria Rare (0-FEW/HPF) /HPF Urine HCG, Qual Negative Salicylates Urine Opiates Screen (NEGATIVE) Ur Oxycodone Screen (NEGATIVE) Urine Methadone Screen (NEGATIVE) Acetaminophen Ur Barbiturates Screen (NEGATIVE) U Tricyclic Antidepress (NEGATIVE) Ur Phencyclidine Scrn (NEGATIVE) Ur Amphetamine Screen (NEGATIVE) U Methamphetamines Scrn (NEGATIVE) Urine MDMA Screen (NEGATIVE) U Benzodiazepines Scrn (NEGATIVE) Urine Cocaine Screen (NEGATIVE) U Marijuana (THC) Screen (NEGATIVE) Ethyl Alcohol mg/dL Meds: Medications Discontinued Medications Generic Name Dose Route Start Last Admin Trade Name Freq PRN Reason Stop Dose Admin Sodium Chloride 1,000 mls @ 999 mls/hr 01/07/17 12:49 01/07/17 13:00 Normal Saline IV 01/07/17 13:49 999 mls/hr .BOLUS ONE Administration Departure - Departure Time of Disposition: 14:22 Disposition: Home, Self-Care 01 Condition: fair Clinical Impression: Anxiety - Discharge Information Instructions: Panic Attacks, [id number] Forms: ED Department Discharge Care Plan Goals: The patient was advised of the examination and lab results during the visit. The patient was encouraged to follow-up with her primary care facility for refills of her medications. The patient should take her medications as directed. If the patient has any additional symptoms or concerns, the patient should visit her primary care facility or return to the emergency department.
[2017-01-07 14:21] VITALS: BP 132/67
== END 2017-01-07 14:33 | disposition home or self-care (01) ==
LOC: DL.ED 12:23
DX: F41.9 Anxiety disorder, unspecified (principal); E66.9 Obesity, unspecified; Z87.440 Personal history of urinary (tract) infections; Z87.891 Personal history of nicotine dependence; Z79.899 Other long term (current) drug therapy; Z88.1 Allergy status to other antibiotic agents; Z68.33 Body mass index [BMI] 33.0-33.9, adult
CPT/HCPCS: 36415; 80053; 80305; 81001; 81025; 83735; 85025; 96360; 99282; 99283; G0480; J7030

== ENCOUNTER 2017-01-07 19:09 | Emergency (ER) | payer OTHER ==
[2017-01-07 19:16] VITALS: BP 141/93
--- NOTE | 2017-01-07 19:59 | EDM.PDOC ---
ED HPI GENERAL MEDICAL PROBLEM - General Chief Complaint: Behavioral/Psych Stated Complaint: ANXIETY Time Seen by Provider: 01/07/17 19:15 Source of Information: Reports: Patient, Family History Limitations: Reports: Altered Mental Status - History of Present Illness INITIAL COMMENTS - FREE TEXT/NARRATIVE: c/o feeling anxious and ran out of fluoxxetine 2 weeks ago. Next appointment February 04, Responses are vague and slow. Patient was seen earlier today with similar compalint, Brought tonight by spouse concerned that patient seems confused and was telling him she was told she was and diabetic from previous visit. When questioned other drug use admits to 4 energy drinks today and 4 + diet cokes and coffee, also admits to taking box of coricedin. Either at 11 am or 11pm last night as story varied. Onset: Unknown/Unsure - Related Data Allergies Allergy/AdvReac Type Severity Reaction Status Date / Time amoxicillin Allergy Severe Anaphylactic Verified 01/07/17 12:29 Shock Home Meds: Home Meds FLUoxetine HCl [Fluoxetine HCl] 10 mg PO DAILY 06/11/16 [History] EPINEPHrine [Epipen] 0.3 mg IM ONETIME PRN #1 pen 12/04/16 [Rx] Past Medical History - Past Health History Medical/Surgical History: Denies Medical/Surgical History HEENT History: Reports: None Other HEENT History: wears glasses Cardiovascular History: Reports: None Respiratory History: Reports: None Other Respiratory History: Bronchitis Gastrointestinal History: Reports: None Genitourinary History: Reports: Pyelonephritis, UTI, Recurrent 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 Other OB/BYN History: LMP Aug 25 Musculoskeletal History: Reports: Back Pain, Chronic Neurological History: Reports: None Psychiatric History: Reports: Anxiety Endocrine/Metabolic History: Reports: Obesity/BMI 30+ Hematologic History: Reports: None Immunologic History: Reports: None Oncologic (Cancer) History: Reports: None Dermatologic History: Reports: None - Infectious Disease History Infectious Disease History: Reports: None - Past Surgical History HEENT Surgical History: Reports: None Social & Family History - Family History Family Medical History: Noncontributory - Tobacco Use Smoking Status *Q: Never Smoker Years of Tobacco use: 3 Packs/Tins Daily: 0.5 Used Tobacco, but Quit: Yes Month Tobacco Last Used: August Second Hand Smoke Exposure: No - Caffeine Use Caffeine Use: Reports: Coffee, Energy Drinks, Soda Other Caffeine Use: 2 diet mt. dew per day Caffeine Use Comment: 3 sodas a day - Alcohol Use Days Per Week of Alcohol Use: 0 - Recreational Drug Use Recreational Drug Use: No Drug Use in Last 12 Months: Yes Recreational Drug Type: Reports: Marijuana/Hashish - Living Situation & Occupation Living situation: Reports: with Significant Other Occupation: Unemployed ED ROS GENERAL - Review of Systems Review Of Systems: See Below Constitutional: Reports: No Symptoms HEENT: Reports: No Symptoms Respiratory: Reports: No Symptoms Cardiovascular: Reports: No Symptoms GI/Abdominal: Reports: No Symptoms Skin: Reports: No Symptoms Neurological: Reports: Confusion Psychiatric: Reports: Anxiety. Denies: Suicidal Ideation - Physical Exam Exam: See Below Exam Limited By: No Limitations General Appearance: Alert, No Apparent Distress Eye Exam: Bilateral Eye: EOMI, PERRL Ears: Normal External Exam Nose: Normal Inspection Throat/Mouth: Normal Inspection Head Exam: Atraumatic, Normocephalic Neck: Normal Inspection, Supple, Full Range of Motion Respiratory/Chest: No Respiratory Distress, Lungs Clear, Normal Breath Sounds Cardiovascular: Normal Peripheral Pulses, Regular Rate, Rhythm GI/Abdominal: Normal Bowel Sounds, Soft, Non-Tender Neuro Exam (Abbreviated): Alert, Oriented, Slow to Respond Back Exam: Full Range of Motion Extremities: Normal Inspection Psychiatric: Flat Affect Skin Exam: Warm, Dry, Intact, Normal Color Comments: Responses slow and vague, offers little information unless to direct questioning. Does not appear anxious. Course - Vital Signs Last Recorded V/S: Last Vital Signs Temp 97.6 F 01/07/17 19:15 Pulse 97 01/07/17 19:15 Resp 18 01/07/17 19:15 BP 141/93 H 01/07/17 19:15 Pulse Ox 97 01/07/17 19:15 - Radiology Interpretation Free Text/Narrative:: Head Ct negative - Re-Assessments/Exams Free Text/Narrative Re-Assessment/Exam: 01/08/17 01:32 Labs and UDS done during previous visit today and not repeated. Spouse not aware of patient's earlier ingestion of Coriciden tablets or side effects of medication. Patient admitted getting them from her sister. Spouse instructed that she is in no state to be caring for children and reports he will be home or will ahve some one else care for children for next 24 hours. Instructed to follow up if further concerns. Departure - Departure Time of Disposition: 19:59 Disposition: Home, Self-Care 01 Condition: fair Clinical Impression: Anxiety, Substance abuse - Discharge Information Instructions: Substance Abuse Testing Referrals: PCPMoni [Primary Care Provider] - Forms: ED Department Discharge Additional Instructions: do not leave patient unattended with children for 24 hours monitor 12 hours encourage fluids no caffeine or energy drinks follow up in am if disoriented no alcohol or other drugs.
== END 2017-01-07 20:07 | disposition home or self-care (01) ==
LOC: DL.ED 19:09
DX: F41.9 Anxiety disorder, unspecified (principal); F19.10 Other psychoactive substance abuse, uncomplicated; E66.9 Obesity, unspecified; Z68.33 Body mass index [BMI] 33.0-33.9, adult; Z88.1 Allergy status to other antibiotic agents; Z79.899 Other long term (current) drug therapy; Z87.440 Personal history of urinary (tract) infections
CPT/HCPCS: 70450; 99282; 99283

== ENCOUNTER 2017-02-27 00:51 | Emergency (ER) | payer OTHER ==
[2017-02-27 01:04] VITALS: BP 156/81
[2017-02-27] MEDS ORDERED: Sodium Chloride 0.9% 1,000 ML IV ONE (01:07)
[2017-02-27] MEDS ORDERED: Ondansetron 4 MG/2 ML SDV IV ONE (01:08)
[2017-02-27 01:48] LABS: CHLORIDE,CL 99 mmol/L (101-111); SODIUM,NA 137 mmol/L (135-145)
--- NOTE | 2017-02-27 02:39 | EDM.PDOC ---
ED HPI GENERAL MEDICAL PROBLEM - General Chief Complaint: General Stated Complaint: AMBULANCE Time Seen by Provider: 02/27/17 01:00 Source of Information: Reports: Patient History Limitations: Reports: No Limitations - History of Present Illness INITIAL COMMENTS - FREE TEXT/NARRATIVE: c/o nausea, vomiting and headache after starting clindamycin for boils under arm. Unable to keep fluids down todya. generalized headache and vision seems to not focus. No hx of skin infections per report, voices concern may be . Generalized Pain Score (Numeric/FACES): 8 - Related Data Allergies Allergy/AdvReac Type Severity Reaction Status Date / Time amoxicillin Allergy Severe Anaphylactic Verified 02/27/17 01:26 Shock Home Meds: Home Meds FLUoxetine HCl [Fluoxetine HCl] 10 mg PO DAILY 06/11/16 [History] EPINEPHrine [Epipen] 0.3 mg IM ONETIME PRN #1 pen 12/04/16 [Rx] Past Medical History - Past Health History Medical/Surgical History: Denies Medical/Surgical History HEENT History: Reports: None Other HEENT History: wears glasses Cardiovascular History: Reports: None Respiratory History: Reports: None Other Respiratory History: Bronchitis Gastrointestinal History: Reports: None Genitourinary History: Reports: Pyelonephritis, UTI, Recurrent 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 Other OB/BYN History: LMP Aug 25 Musculoskeletal History: Reports: Back Pain, Chronic Neurological History: Reports: None Psychiatric History: Reports: Anxiety Endocrine/Metabolic History: Reports: Obesity/BMI 30+ Hematologic History: Reports: None Immunologic History: Reports: None Oncologic (Cancer) History: Reports: None Dermatologic History: Reports: None - Infectious Disease History Infectious Disease History: Reports: None - Past Surgical History HEENT Surgical History: Reports: None Social & Family History - Family History Family Medical History: Noncontributory - Tobacco Use Smoking Status *Q: Never Smoker Years of Tobacco use: 3 Packs/Tins Daily: 0.5 Used Tobacco, but Quit: Yes Month Tobacco Last Used: August Second Hand Smoke Exposure: No - Caffeine Use Caffeine Use: Reports: Coffee, Energy Drinks, Soda Other Caffeine Use: 2 diet mt. dew per day Caffeine Use Comment: 3 sodas a day - Alcohol Use Days Per Week of Alcohol Use: 0 - Recreational Drug Use Recreational Drug Use: No Drug Use in Last 12 Months: Yes Recreational Drug Type: Reports: Marijuana/Hashish - Living Situation & Occupation Living situation: Reports: with Significant Other Occupation: Unemployed ED ROS GENERAL - Review of Systems Review Of Systems: See Below ED EXAM, GENERAL - Physical Exam Exam: See Below Exam Limited By: No Limitations General Appearance: Alert, Mild Distress Eye Exam: Bilateral Eye: EOMI, PERRL Ears: Normal External Exam, Normal TMs Nose: Normal Inspection Throat/Mouth: Normal Inspection Head: Atraumatic, Normocephalic Neck: Normal Inspection, Full Range of Motion Respiratory/Chest: No Respiratory Distress, Lungs Clear Cardiovascular: Normal Peripheral Pulses, Regular Rate, Rhythm Extremities: Normal Inspection Neurological: Alert, Oriented, Normal Gait. No: Normal Cognition (slow to process) Psychiatric: Anxious Skin Exam: Warm, Dry, Intact, Other (multiple cystic firm lesions to right axilla) Course - Vital Signs Last Recorded V/S: Last Vital Signs Temp 99.3 F 02/27/17 00:53 Pulse 98 02/27/17 00:53 Resp 18 02/27/17 00:53 BP 156/81 H 02/27/17 00:53 Pulse Ox 100 02/27/17 00:53 - Orders/Labs/Meds Labs: Laboratory Tests 02/27/17 02/27/17 02/27/17 Range/Units 01:18 01:18 01:18 WBC 11.9 H (5.0-10.0) 10^3/uL RBC 4.61 (4.2-5.4) 10^6/uL Hgb 13.7 (12.0-16.0) g/dL Hct 40.5 (37.0-47.0) % MCV 87.9 (80-100) fL MCH 29.7 (27.0-34.0) pg MCHC 33.8 (33.0-35.0) g/dL Plt Count 347 (150-450) 10^3/uL Neut % (Auto) 78.9 H (42.2-75.2) % Lymph % (Auto) 14.4 L (20.5-50.1) % [place] % (Auto) 6.2 (2-8) % Eos % (Auto) 0.3 L (1.0-3.0) % Baso % (Auto) 0.2 (0.0-1.0) % Sodium 137 (135-145) mmol/L Potassium 3.6 (3.6-5.0) mmol/L Chloride 99 L (101-111) mmol/L Carbon Dioxide 25.0 (21.0-31.0) mmol/L Anion Gap 16.6 BUN 7 (7-18) mg/dL Creatinine 0.7 (0.6-1.3) mg/dL Est Cr Clr Drug Dosing 126.09 mL/min Estimated GFR (MDRD) > 60 BUN/Creatinine Ratio 10.00 Glucose 115 H (74-105) mg/dL Lactic Acid 1.3 (0.5-2.2) mmol/L Calcium 9.2 (8.4-10.2) mg/dl Total Bilirubin 0.9 (0.2-1.0) mg/dL AST 23 (10-42) IU/L ALT 21 (10-60) IU/L Alkaline Phosphatase 95 (42-121) IU/L Total Protein 7.7 (6.7-8.2) g/dl Albumin 4.3 (3.2-5.5) g/dl Globulin 3.4 Albumin/Globulin Ratio 1.26 Amylase 48 (28-100) U/L Lipase 19 L (22-51) U/L HCG, Qual Negative Urine Color (YELLOW) Urine Appearance (CLEAR) Urine pH (5.0-9.0) Ur Specific [place] (1.005-1.030) Urine Protein (NEGATIVE) Urine Glucose (UA) (NEGATIVE) Urine Ketones (NEGATIVE) Urine Occult Blood (NEGATIVE) Urine Nitrite (NEGATIVE) Urine Bilirubin (NEGATIVE) Urine Urobilinogen (0.2-1.0) mg/dL Ur Leukocyte Esterase (NEGATIVE) Urine RBC /HPF Urine WBC (0-5/HPF) /HPF Ur Epithelial Cells /HPF Urine Bacteria (0-FEW/HPF) /HPF Urine Opiates Screen (NEGATIVE) Ur Oxycodone Screen (NEGATIVE) Urine Methadone Screen (NEGATIVE) Ur Barbiturates Screen (NEGATIVE) U Tricyclic Antidepress (NEGATIVE) Ur Phencyclidine Scrn (NEGATIVE) Ur Amphetamine Screen (NEGATIVE) U Methamphetamines Scrn (NEGATIVE) Urine MDMA Screen (NEGATIVE) U Benzodiazepines Scrn (NEGATIVE) Urine Cocaine Screen (NEGATIVE) U Marijuana (THC) Screen (NEGATIVE) 02/27/17 02/27/17 Range/Units 02:41 02:41 WBC (5.0-10.0) 10^3/uL RBC (4.2-5.4) 10^6/uL Hgb (12.0-16.0) g/dL Hct (37.0-47.0) % MCV (80-100) fL MCH (27.0-34.0) pg MCHC (33.0-35.0) g/dL Plt Count (150-450) 10^3/uL Neut % (Auto) (42.2-75.2) % Lymph % (Auto) (20.5-50.1) % [place] % (Auto) (2-8) % Eos % (Auto) (1.0-3.0) % Baso % (Auto) (0.0-1.0) % Sodium (135-145) mmol/L Potassium (3.6-5.0) mmol/L Chloride (101-111) mmol/L Carbon Dioxide (21.0-31.0) mmol/L Anion Gap BUN (7-18) mg/dL Creatinine (0.6-1.3) mg/dL Est Cr Clr Drug Dosing mL/min Estimated GFR (MDRD) BUN/Creatinine Ratio Glucose (74-105) mg/dL Lactic Acid (0.5-2.2) mmol/L Calcium (8.4-10.2) mg/dl Total Bilirubin (0.2-1.0) mg/dL AST (10-42) IU/L ALT (10-60) IU/L Alkaline Phosphatase (42-121) IU/L Total Protein (6.7-8.2) g/dl Albumin (3.2-5.5) g/dl Globulin Albumin/Globulin Ratio Amylase (28-100) U/L Lipase (22-51) U/L HCG, Qual Urine Color Yellow (YELLOW) Urine Appearance Slightly cloudy (CLEAR) Urine pH 8.5 (5.0-9.0) Ur Specific [place] 1.015 (1.005-1.030) Urine Protein Negative (NEGATIVE) Urine Glucose (UA) Negative (NEGATIVE) Urine Ketones Trace H (NEGATIVE) Urine Occult Blood Negative (NEGATIVE) Urine Nitrite Negative (NEGATIVE) Urine Bilirubin Negative (NEGATIVE) Urine Urobilinogen 2.0 H (0.2-1.0) mg/dL Ur Leukocyte Esterase Negative (NEGATIVE) Urine RBC 0-5 /HPF Urine WBC 0-5 (0-5/HPF) /HPF Ur Epithelial Cells Moderate H /HPF Urine Bacteria Moderate H (0-FEW/HPF) /HPF Urine Opiates Screen Positive H (NEGATIVE) Ur Oxycodone Screen Positive H (NEGATIVE) Urine Methadone Screen Negative (NEGATIVE) Ur Barbiturates Screen Negative (NEGATIVE) U Tricyclic Antidepress Negative (NEGATIVE) Ur Phencyclidine Scrn Negative (NEGATIVE) Ur Amphetamine Screen Negative (NEGATIVE) U Methamphetamines Scrn Negative (NEGATIVE) Urine MDMA Screen Negative (NEGATIVE) U Benzodiazepines Scrn Negative (NEGATIVE) Urine Cocaine Screen Negative (NEGATIVE) U Marijuana (THC) Screen Negative (NEGATIVE) Meds: Medications Discontinued Medications Generic Name Dose Route Start Last Admin Trade Name Freq PRN Reason Stop Dose Admin Sodium Chloride 1,000 mls @ 999 mls/hr 02/27/17 01:07 02/27/17 01:28 Normal Saline IV 02/27/17 02:07 999 mls/hr .BOLUS ONE Administration Ondansetron HCl 4 mg 02/27/17 01:08 02/27/17 01:33 Zofran IV 02/27/17 01:09 4 mg ONETIME ONE Administration Ondansetron HCl Confirm 02/27/17 02:42 02/27/17 02:46 Zofran Odt Administered 02/27/17 02:43 Not Given Dose 8 mg .ROUTE .STK-MED ONE Ondansetron HCl 8 mg 02/27/17 02:42 Zofran Odt PO 02/27/17 02:43 .STK-MED ONE - Re-Assessments/Exams Free Text/Narrative Re-Assessment/Exam: 03/05/17 04:24 Patient denied any drug use, UDS positive. Previous concern on prior visit with possible . Results to patient. Departure - Departure Time of Disposition: 02:34 Disposition: Home, Self-Care 01 Condition: Good Clinical Impression: Skin abscess Qualifiers: Site of cutaneous abscess: other site Qualified Code(s): L02.818 - Cutaneous abscess of other sites Adverse effects of medication Qualifiers: Encounter type: initial encounter Qualified Code(s): T88.7XXA - Unspecified adverse effect of drug or medicament, initial encounter Vomiting Qualifiers: Vomiting type: unspecified Vomiting Intractability: non-intractable Nausea presence: with nausea Qualified Code(s): R11.2 - Nausea with vomiting, unspecified - Discharge Information Instructions: Nausea, Adult Forms: ED Department Discharge Additional Instructions: zofran 4mg ODT one every 6 houras as needed for nausea #2 stop clindamycin bactrim DS one twice daily for 7 days recheck in clinic on Friday increase fluid intake warm pack to right axilla 4 times daily for 15 minutes
[2017-02-27] MEDS ORDERED: Ondansetron 4 MG Tab.DIS PO ONE (02:42)
[2017-02-27] MEDS ORDERED: Ondansetron 4 MG Tab.DIS ONE (02:42)
== END 2017-02-27 02:52 | disposition home or self-care (01) ==
LOC: DL.ED 00:51
DX: R11.2 Nausea with vomiting, unspecified (principal); L02.818 Cutaneous abscess of other sites; T36.8X5A Adverse effect of other systemic antibiotics, initial encounter; F41.9 Anxiety disorder, unspecified; E66.9 Obesity, unspecified; Z87.440 Personal history of urinary (tract) infections; Z87.891 Personal history of nicotine dependence; Z79.899 Other long term (current) drug therapy; Z88.1 Allergy status to other antibiotic agents
CPT/HCPCS: 36415; 80053; 80305; 81001; 82150; 83605; 83690; 84703; 85025; 87040; 96361; 96374; 99284; A9270; J2405; J7030

== ENCOUNTER 2017-04-01 08:53 | Emergency (ER) | payer OTHER ==
[2017-04-01 09:45] VITALS: BP 150/89
--- NOTE | 2017-04-01 10:12 | EDM.PDOC ---
ED HPI GENERAL MEDICAL PROBLEM - General Chief Complaint: Genitourinary Problem Stated Complaint: UNABLE TO URINATE. [phone] Time Seen by Provider: 04/01/17 10:00 Source of Information: Reports: Patient History Limitations: Reports: No Limitations - History of Present Illness INITIAL COMMENTS - FREE TEXT/NARRATIVE: This 22 yo female patient reports to the ED with a 2 day history of burning with urination. The patient reports that she has not been able to urinate today. The patient has not been seen in the clinic for her current symptoms. The patient reports she continues to have burning even after a catheter was placed. Onset: Today (unable to urinate) Duration: Day(s): (dysuria) Location: Reports: Abdomen (RLQ) Quality: Reports: Burning, Dull Severity: Moderate Improves with: Reports: None Worsens with: Reports: None Associated Symptoms: Reports: No Other Symptoms - Related Data Allergies Allergy/AdvReac Type Severity Reaction Status Date / Time amoxicillin Allergy Severe Anaphylactic Verified 02/27/17 01:26 Shock Penicillins Allergy Severe couldn't Verified 04/01/17 08:57 breath Home Meds: Home Meds FLUoxetine HCl [Fluoxetine HCl] 30 mg PO DAILY 06/11/16 [History] EPINEPHrine [Epipen] 0.3 mg IM ONETIME PRN #1 pen 12/04/16 [Rx] Past Medical History - Past Health History Medical/Surgical History: Denies Medical/Surgical History HEENT History: Reports: None Other HEENT History: wears glasses Cardiovascular History: Reports: None Respiratory History: Reports: None Other Respiratory History: Bronchitis Gastrointestinal History: Reports: None Genitourinary History: Reports: Pyelonephritis, UTI, 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 Other OB/BYN History: LMP Aug 25 Musculoskeletal History: Reports: Back Pain, Chronic Neurological History: Reports: None Psychiatric History: Reports: Anxiety Endocrine/Metabolic History: Reports: Obesity/BMI 30+ Hematologic History: Reports: None Immunologic History: Reports: None Oncologic (Cancer) History: Reports: None Dermatologic History: Reports: None - Infectious Disease History Infectious Disease History: Reports: None - Past Surgical History HEENT Surgical History: Reports: None Social & Family History - Family History Family Medical History: Noncontributory - Tobacco Use Smoking Status *Q: Never Smoker Years of Tobacco use: 3 Packs/Tins Daily: 0.5 Used Tobacco, but Quit: Yes Month Tobacco Last Used: August Second Hand Smoke Exposure: No - Caffeine Use Caffeine Use: Reports: Coffee, Energy Drinks, Soda Other Caffeine Use: 2 diet mt. dew per day Caffeine Use Comment: 3 sodas a day - Alcohol Use Days Per Week of Alcohol Use: 0 - Recreational Drug Use Recreational Drug Use: No Drug Use in Last 12 Months: Yes Recreational Drug Type: Reports: Marijuana/Hashish - Living Situation & Occupation Living situation: Reports: with Significant Other Occupation: Unemployed ED ROS GENERAL - Review of Systems Review Of Systems: ROS reveals no pertinent complaints other than HPI. ED EXAM, GI/ABD - Physical Exam Exam: See Below Exam Limited By: No Limitations General Appearance: Alert, WD/WN, Moderate Distress Eyes: Bilateral: Normal Appearance, EOMI Ears: Normal External Exam, Normal Canal, Hearing Grossly Normal, Normal TMs Nose: Normal Inspection, Normal Mucosa, No Blood Throat/Mouth: Normal Inspection, Normal Lips, Normal Teeth, Normal Gums, Normal Oropharynx, Normal Voice, No Airway Compromise Head: Atraumatic, Normocephalic Neck: Normal Inspection, Supple, Non-Tender, Full Range of Motion Respiratory/Chest: No Respiratory Distress, Lungs Clear, Normal Breath Sounds, No Accessory Muscle Use, Chest Non-Tender Cardiovascular: Normal Peripheral Pulses, Regular Rate, Rhythm, No Edema, No Gallop, No JVD, No Murmur, No Rub GI/Abdominal Exam: Normal Bowel Sounds, Soft, No Organomegaly, No Distention, No Abnormal Bruit, No Mass, Pelvis Stable, Guarding, Tender (RLQ) (Female) Exam: Deferred Rectal (Female) Exam: Deferred Back Exam: Normal Inspection, Full Range of Motion, NT Extremities: Normal Inspection, Normal Range of Motion, Non-Tender, Normal Capillary Refill, No Pedal Edema Neurological: Alert, Oriented, CN II-XII Intact, Normal Cognition, Normal Gait, Normal Reflexes, No Motor/Sensory Deficits Psychiatric: Normal Affect, Normal Mood Skin Exam: Warm, Dry, Intact, Normal Color, No Rash Lymphatic: No Adenopathy Course - Vital Signs Last Recorded V/S: Last Vital Signs Temp 36.4 C 04/01/17 08:55 Pulse 85 04/01/17 08:55 Resp 16 04/01/17 08:55 BP 150/89 H 04/01/17 08:55 Pulse Ox 99 04/01/17 08:55 - Orders/Labs/Meds Orders: Active Orders 24 hr Category Date Time Status COMPREHENSIVE METABOLIC PN,CMP [CHEM] Urgent Lab 04/01/17 10:14 Received Labs: Laboratory Tests 04/01/17 04/01/17 04/01/17 Range/Units 09:12 09:12 10:14 WBC 7.3 (5.0-10.0) 10^3/uL RBC 4.47 (4.2-5.4) 10^6/uL Hgb 13.3 (12.0-16.0) g/dL Hct 40.2 (37.0-47.0) % MCV 89.9 (80-100) fL MCH 29.8 (27.0-34.0) pg MCHC 33.1 (33.0-35.0) g/dL Plt Count 335 (150-450) 10^3/uL Neut % (Auto) 61.8 (42.2-75.2) % Lymph % (Auto) 27.3 (20.5-50.1) % [place] % (Auto) 8.9 H (2-8) % Eos % (Auto) 1.6 (1.0-3.0) % Baso % (Auto) 0.4 (0.0-1.0) % Urine Color Straw (YELLOW) Urine Appearance Slightly cloudy (CLEAR) Urine pH 6.5 (5.0-9.0) Ur Specific [place] 1.020 (1.005-1.030) Urine Protein Negative (NEGATIVE) Urine Glucose (UA) Negative (NEGATIVE) Urine Ketones Negative (NEGATIVE) Urine Occult Blood Negative (NEGATIVE) Urine Nitrite Negative (NEGATIVE) Urine Bilirubin Negative (NEGATIVE) Urine Urobilinogen 0.2 (0.2-1.0) mg/dL Ur Leukocyte Esterase Negative (NEGATIVE) Urine RBC Not seen /HPF Urine WBC 0-5 (0-5/HPF) /HPF Ur Epithelial Cells Few /HPF Urine Bacteria Few (0-FEW/HPF) /HPF Urine Mucus Many H /LPF Urine HCG, Qual Negative Departure - Departure Time of Disposition: 11:30 Disposition: Home, Self-Care 01 Condition: Fair Clinical Impression: Retention of urine - Discharge Information Forms: ED Department Discharge Care Plan Goals: The patient was advised of the examination and lab results during the visit. During the visit, a catheter was placed to assist the patient eliminate urine. The patient was encouraged to increase her oral fluid intake. If the patient has any additional symptoms or concerns, the patient should follow-up with her primary care facility or return to the emergency department. - My Orders Last 24 Hours: My Active Orders 04/01/17 10:14 COMPREHENSIVE METABOLIC PN,CMP [CHEM] Urgent - Assessment/Plan Last 24 Hours: My Active Orders 04/01/17 10:14 COMPREHENSIVE METABOLIC PN,CMP [CHEM] Urgent
[2017-04-01 12:08] LABS: SODIUM,NA 140 MEQ/L
== END 2017-04-01 11:43 | disposition home or self-care (01) ==
LOC: DL.ED 08:53
DX: R33.9 Retention of urine, unspecified (principal); E66.9 Obesity, unspecified; Z88.1 Allergy status to other antibiotic agents; Z88.0 Allergy status to penicillin; Z79.899 Other long term (current) drug therapy; Z87.440 Personal history of urinary (tract) infections; Z68.35 Body mass index [BMI] 35.0-35.9, adult
CPT/HCPCS: 36415; 51702; 80053; 81001; 81025; 85025; 99283

== ENCOUNTER 2017-04-13 18:11 | Emergency (ER) | payer OTHER ==
--- NOTE | 2017-04-13 18:54 | EDM.PDOC ---
ED HPI GENERAL MEDICAL PROBLEM - General Stated Complaint: chest pain Time Seen by Provider: 04/13/17 18:52 Source of Information: Reports: Patient History Limitations: Reports: No Limitations - History of Present Illness INITIAL COMMENTS - FREE TEXT/NARRATIVE: 3 days h/o sob also has sinus problems then today developed left chest pain constant and does hurt to move about, only had cabbage soup al day. 5 Pain Score (Numeric/FACES): 5 - Related Data Allergies Allergy/AdvReac Type Severity Reaction Status Date / Time amoxicillin Allergy Severe Anaphylactic Verified 02/27/17 01:26 Shock Penicillins Allergy Severe couldn't Verified 04/01/17 08:57 breath Home Meds: Home Meds FLUoxetine HCl [Fluoxetine HCl] 30 mg PO DAILY 06/11/16 [History] EPINEPHrine [Epipen] 0.3 mg IM ONETIME PRN #1 pen 12/04/16 [Rx] Past Medical History - Past Health History Medical/Surgical History: Denies Medical/Surgical History HEENT History: Reports: None Other HEENT History: wears glasses Cardiovascular History: Reports: None Respiratory History: Reports: None Other Respiratory History: Bronchitis Gastrointestinal History: Reports: None Genitourinary History: Reports: Pyelonephritis, UTI, 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 Takes oral Vitamin D weekly, dose unknown. Immunologic History: Reports: None Oncologic (Cancer) History: Reports: None Dermatologic History: Reports: None - Infectious Disease History Infectious Disease History: Reports: None - Past Surgical History HEENT Surgical History: Reports: None Social & Family History - Family History Family Medical History: Noncontributory - Tobacco Use Smoking Status *Q: Never Smoker Years of Tobacco use: 3 Packs/Tins Daily: 0.5 Used Tobacco, but Quit: Yes Month Tobacco Last Used: August Second Hand Smoke Exposure: No - Caffeine Use Caffeine Use: Reports: Coffee, Energy Drinks, Soda Other Caffeine Use: 2 diet mt. dew per day Caffeine Use Comment: 3 sodas a day - Alcohol Use Days Per Week of Alcohol Use: 0 - Recreational Drug Use Recreational Drug Use: No Drug Use in Last 12 Months: Yes Recreational Drug Type: Reports: Marijuana/Hashish - Living Situation & Occupation Living situation: Reports: with Significant Other Occupation: Unemployed ED ROS GENERAL - Review of Systems Review Of Systems: ROS reveals no pertinent complaints other than HPI. ED EXAM, GENERAL - Physical Exam Exam: See Below Exam Limited By: No Limitations General Appearance: Alert, WD/WN, No Apparent Distress, Anxious Ears: Hearing Grossly Normal Ear Exam: Bilateral Ear: Auricle Normal, Canal Normal, TM Dull Throat/Mouth: Normal Voice, No Airway Compromise Head: Atraumatic Neck: Non-Tender, Full Range of Motion Respiratory/Chest: No Respiratory Distress, Lungs Clear, Normal Breath Sounds, No Accessory Muscle Use Cardiovascular: Regular Rate, Rhythm Peripheral Pulses: 4+: Dorsalis Pedis (R) GI/Abdominal: Soft. No: Distended, Guarding, Rigid, Rebound, Tender Neurological: Alert, Oriented, Normal Cognition, Normal Gait, No Motor/Sensory Deficits Psychiatric: Normal Affect, Normal Mood Skin Exam: Warm, Dry, Normal Color Lymphatic: No Adenopathy Course - Vital Signs Last Recorded V/S: Last Vital Signs Temp 36.4 C 04/13/17 18:53 Pulse 88 04/13/17 18:53 Resp 18 04/13/17 18:53 BP 138/88 04/13/17 18:53 Pulse Ox 99 04/13/17 18:53 - Orders/Labs/Meds Orders: Active Orders 24 hr Category Date Time Status Azithromycin [Zithromax] Med 04/13/17 19:40 Once 500 mg PO ONETIME ONE Ketorolac [Toradol] Med 04/13/17 19:40 Once 30 mg IM ONETIME ONE Labs: Laboratory Tests 04/13/17 04/13/17 04/13/17 Range/Units 19:03 19:03 19:03 WBC 10.0 (5.0-10.0) 10^3/uL RBC 4.20 (4.2-5.4) 10^6/uL Hgb 12.6 (12.0-16.0) g/dL Hct 38.0 (37.0-47.0) % MCV 90.5 (80-100) fL MCH 30.0 (27.0-34.0) pg MCHC 33.2 (33.0-35.0) g/dL Plt Count 329 (150-450) 10^3/uL Neut % (Auto) 66.6 (42.2-75.2) % Lymph % (Auto) 24.7 (20.5-50.1) % [place] % (Auto) 7.7 (2-8) % Eos % (Auto) 0.8 L (1.0-3.0) % Baso % (Auto) 0.2 (0.0-1.0) % D-Dimer, Quantitative < 100 (0-400) ng/mL Sodium 140 (135-145) mmol/L Potassium 3.8 (3.6-5.0) mmol/L Chloride 105 (101-111) mmol/L Carbon Dioxide 26.0 (21.0-31.0) mmol/L Anion Gap 12.8 BUN 8 (7-18) mg/dL Creatinine 0.9 (0.6-1.3) mg/dL Est Cr Clr Drug Dosing TNP Estimated GFR (MDRD) > 60 BUN/Creatinine Ratio 8.88 Glucose 110 H (74-105) mg/dL Calcium 8.7 (8.4-10.2) mg/dl Total Bilirubin 0.3 (0.2-1.0) mg/dL AST 19 (10-42) IU/L ALT 19 (10-60) IU/L Alkaline Phosphatase 76 (42-121) IU/L Troponin I < 0.02 (0.00-0.02) ng/ml Total Protein 6.8 (6.7-8.2) g/dl Albumin 3.8 (3.2-5.5) g/dl Globulin 3.0 Albumin/Globulin Ratio 1.27 HCG, Qual Negative - Re-Assessments/Exams Free Text/Narrative Re-Assessment/Exam: 04/13/17 19:40 results discussed with pt. Departure - Departure Time of Disposition: 19:41 Disposition: Home, Self-Care 01 Condition: Good Clinical Impression: Pleurisy Sinusitis Qualifiers: Sinusitis location: pansinusitis Chronicity: acute Recurrence: non-recurrent Qualified Code(s): J01.40 - Acute pansinusitis, unspecified Instructions: Pleurisy, [id number] Forms: ED Department Discharge Additional Instructions: 1) avoid bending lifting straining next 48 hours 2) try heat to area 3) take tylenol or motrin for pain 4) follow up at clinic or recheck as needed rx given; angelina - My Orders Last 24 Hours: My Active Orders 04/13/17 19:40 Azithromycin [Zithromax] 500 mg PO ONETIME ONE Ketorolac [Toradol] 30 mg IM ONETIME ONE - Assessment/Plan Last 24 Hours: My Active Orders 04/13/17 19:40 Azithromycin [Zithromax] 500 mg PO ONETIME ONE Ketorolac [Toradol] 30 mg IM ONETIME ONE
[2017-04-13 19:29] LABS: CHLORIDE,CL 105 mmol/L (101-111); SODIUM,NA 140 mmol/L (135-145)
[2017-04-13] MEDS ORDERED: Azithromycin 250 MG Tab PO ONE (19:40)
[2017-04-13] MEDS ORDERED: Ketorolac 30 MG/ML SDV IM ONE (19:40)
[2017-04-13 20:16] VITALS: BP 130/85
--- NOTE | 2017-04-16 15:25 | EKG ---
04/13/2017- [facility] - EKG per my reading shows sinus rhythm at a rate of [address] changes. MODL /[id number]
== END 2017-04-13 20:00 | disposition home or self-care (01) ==
LOC: DL.ED 18:11
DX: J01.40 Acute pansinusitis, unspecified (principal); R09.1 Pleurisy; F41.9 Anxiety disorder, unspecified; E66.9 Obesity, unspecified; Z88.1 Allergy status to other antibiotic agents; Z88.0 Allergy status to penicillin; Z79.899 Other long term (current) drug therapy; Z87.440 Personal history of urinary (tract) infections
CPT/HCPCS: 36415; 80053; 84484; 84703; 85025; 85379; 96372; 99285; A9270; J1885

== ENCOUNTER 2019-04-20 14:57 | Emergency (ER) | payer BC, OTHER ==
[2019-04-20 15:12] VITALS: BP 133/77
--- NOTE | 2019-04-20 15:31 | EDM.PDOCBH ---
ED HPI GENERAL MEDICAL PROBLEM - General Chief Complaint: Behavioral/Psych Stated Complaint: WITHDRAWLS FROM MEDICINE Time Seen by Provider: 04/20/19 15:27 Source of Information: Reports: Patient, Old Records, RN, RN Notes Reviewed History Limitations: Reports: No Limitations - History of Present Illness INITIAL COMMENTS - FREE TEXT/NARRATIVE: Pt presents to ER by POV with C/O withdrawals from Lexapro. Pt states she went to clinic with this complaint and was told to go to the ER. Pt reports c/o H/A, nausea, and emesis that began last night. She also states she feels intermittently hot and cold. Admits to mild blurring of vision, shakiness, and feeling dizzy. Onset: Gradual Onset Date: 04/19/19 Duration: Constant Location: Reports: Generalized Severity: Severe Improves with: Reports: None Worsens with: Reports: None Headache Pain Score (Numeric/FACES): 8 - Related Data Allergies Allergy/AdvReac Type Severity Reaction Status Date / Time amoxicillin Allergy Severe Anaphylactic Verified 02/27/17 01:26 Shock Penicillins Allergy Severe couldn't Verified 04/01/17 08:57 breath Home Meds: Home Meds EPINEPHrine [Epipen] 0.3 mg IM ONETIME PRN #1 pen 12/04/16 [Rx] Escitalopram [Lexapro] 10 mg PO DAILY 04/20/19 [History] Lisinopril 5 mg PO DAILY 04/20/19 [History] Propranolol [Inderal] 10 mg PO DAILY 04/20/19 [History] Past Medical History - Past Health History Medical/Surgical History: Denies Medical/Surgical History HEENT History: Reports: None Other HEENT History: wears glasses Cardiovascular History: Reports: None Respiratory History: Reports: None Other Respiratory History: Bronchitis Gastrointestinal History: Reports: None Genitourinary History: Reports: Pyelonephritis, UTI, Recurrent SPARK TESTER History: Reports: Dysfunctional Uterine Bleeding Other SPARK TESTER History: LMP Aug 25 Musculoskeletal History: Reports: Back Pain, Chronic Neurological History: Reports: None Psychiatric History: Reports: Anxiety Endocrine/Metabolic History: Reports: Obesity/BMI 30+ Hematologic History: Reports: None Other Hematologic History: Vitamin D Deficiency. Takes oral Vitamin D weekly, dose unknown. Immunologic History: Reports: None Oncologic (Cancer) History: Reports: None Dermatologic History: Reports: None - Infectious Disease History Infectious Disease History: Reports: None - Past Surgical History HEENT Surgical History: Reports: None Social & Family History - Family History Family Medical History: Noncontributory - Caffeine Use Caffeine Use: Reports: Coffee, Energy Drinks, Soda Other Caffeine Use: 2 diet mtRj millerw per day Caffeine Use Comment: 3 sodas a day - Living Situation & Occupation Living situation: Reports: with Significant Other Occupation: Unemployed ED ROS GENERAL - Review of Systems Review Of Systems: ROS reveals no pertinent complaints other than HPI. ED EXAM, BEHAVIORAL HEALTH - Physical Exam Exam: See Below Exam Limited By: No Limitations General Appearance: Alert, No Apparent Distress, Obese Eye Exam: Bilateral Eye: EOMI, Normal Inspection, PERRL Nose: Normal Inspection, Normal Mucosa, No Blood Throat/Mouth: Normal Lips, Normal Oropharynx, Normal Voice, No Airway Compromise Head: Atraumatic, Normocephalic Neck: Normal Inspection, Supple, Non-Tender, Full Range of Motion Respiratory/Chest: No Respiratory Distress, Lungs Clear, Normal Breath Sounds, No Accessory Muscle Use, Chest Non-Tender Cardiovascular: Normal Peripheral Pulses, Regular Rate, Rhythm, No Edema, No Gallop, No JVD, No Murmur, No Rub GI/Abdominal: Normal Bowel Sounds, Soft, Non-Tender Back Exam: Normal Inspection Extremities: Normal Inspection, Normal Range of Motion, Non-Tender, Normal Capillary Refill, No Pedal Edema Neurological: Alert, CN II-XII Intact, Normal Cognition, Normal Gait, No Motor/ Sensory Deficits, Oriented x 3 Skin Exam: Warm, Dry, Intact, Normal color, No rash COURSE, BEHAVIORAL HEALTH COMP - Course Vital Signs: Last Vital Signs Temp 97.7 F 04/20/19 15:11 Pulse 68 04/20/19 15:11 Resp 18 04/20/19 15:11 BP 133/77 04/20/19 15:11 Pulse Ox 98 04/20/19 15:11 Orders, Labs, Meds: Active Orders 24 hr Category Date Time Status Ondansetron [Zofran ODT] Med 04/20/19 15:46 Once 4 mg PO ONETIME ONE Departure - Departure Time of Disposition: 15:46 Disposition: Home, Self-Care 01 Condition: Good Clinical Impression: Medication withdrawal Qualifiers: Substance type: other psychoactive substance Qualified Code(s): F19.939 - Other psychoactive substance use, unspecified with withdrawal, unspecified - Discharge Information *PRESCRIPTION DRUG MONITORING PROGRAM REVIEWED*: No *COPY OF PRESCRIPTION DRUG MONITORING REPORT IN PATIENT SANDHYA: No Instructions: Escitalopram tablets Forms: ED Department Discharge Additional Instructions: Take a half tablet of your Lexapro today. Use Magnesium supplement for leg pains and sleep: Take 500mg one hour before bedtime every night. Drink plenty of water. - My Orders Last 24 Hours: My Active Orders 04/20/19 15:46 Ondansetron [Zofran ODT] 4 mg PO ONETIME ONE - Assessment/Plan Last 24 Hours: My Active Orders 04/20/19 15:46 Ondansetron [Zofran ODT] 4 mg PO ONETIME ONE
[2019-04-20] MEDS ORDERED: Ondansetron 4 MG Tab.DIS PO ONE (15:46)
== END 2019-04-20 16:00 | disposition home or self-care (01) ==
LOC: DL.ED 14:57
DX: F19.239 Other psychoactive substance dependence with withdrawal, unspecified (principal); F41.9 Anxiety disorder, unspecified; E66.9 Obesity, unspecified; Z68.36 Body mass index [BMI] 36.0-36.9, adult; Z88.0 Allergy status to penicillin; Z88.1 Allergy status to other antibiotic agents; Z79.899 Other long term (current) drug therapy
CPT/HCPCS: 99283; A9270

== ENCOUNTER 2025-02-03 08:31 | Emergency (ER) | payer MEDICAID ==
[2025-02-03] MEDS: Ketorolac 30 MG/ML SDV IVPUSH ONE (08:25)
[2025-02-03] MEDS ORDERED: Sodium Chloride 0.9% 10 ML Syringe FLUSH PRN (08:34)
[2025-02-03 08:46] VITALS: BP 139/82; PULSE 99
[2025-02-03 08:47] LABS: BASOPHILS PERCENT AUTO 0.8 % (0.0-1.0); EOSINOPHILS PERCENT AUTO 1.8 % (1.0-3.0); HEMATOCRIT 36.6 % (37.0-47.0); HEMOGLOBIN 11.8 g/dL (12.0-16.0); LYMPHOCYTES PERCENT AUTO 24.9 % (20.5-50.1); MEAN CORPUSCULAR HEMOGLOBIN 28.6 pg (27.0-34.0); MEAN CORPUSCULAR HGB CONC 32.2 g/dL (33.0-35.0); MEAN CORPUSCULAR VOLUME 88.6 fL (80-100); MONOCYTES PERCENT AUTO 11.3 % (2-8); NEUTROPHILS PERCENT AUTO 61.2 % (42.2-75.2); PLATELET COUNT,PLT 483 10^3/uL (150-450); RED BLOOD CELL COUNT 4.13 10^6/uL (4.2-5.4)
[2025-02-03 08:50] LABS: APPEARANCE,URINE SLIGHTLY CLOUDY (CLEAR); BILIRUBIN,URINE NEGATIVE (NEGATIVE); COLOR,URINE YELLOW (YELLOW); GLUCOSE,URINE NEGATIVE (NEGATIVE); KETONES,URINE TRACE (NEGATIVE); LEUKOCYTE ESTERASE,URINE TRACE (NEGATIVE); NITRITE,URINE NEGATIVE (NEGATIVE); OCCULT BLOOD,URINE LARGE (NEGATIVE); PH,URINE 6.5 (5.0-9.0); PROTEIN,URINE NEGATIVE (NEGATIVE); UROBILINOGEN,URINE 0.2 mg/dL (0.2-1.0)
[2025-02-03 08:56] LABS: AMPHETAMINES,URINE NEGATIVE (NEGATIVE); BARBITURATES,URINE NEGATIVE (NEGATIVE); BENZODIAZEPINE,URINE NEGATIVE (NEGATIVE); MDMA (ECSTASY), URINE NEGATIVE (NEGATIVE); METHADONE,URINE NEGATIVE (NEGATIVE); METHAMPHETAMINES,URINE NEGATIVE (NEGATIVE); OPIATES,URINE NEGATIVE (NEGATIVE); OXYCODONE,URINE NEGATIVE (NEGATIVE); PHENCYCLIDINE,URINE NEGATIVE (NEGATIVE); TCA,URINE NEGATIVE (NEGATIVE)
[2025-02-03 09:09] LABS: A/G RATIO 1.1; ALANINE AMINOTRANSFERASE,ALT 38 U/L (14-59); ALBUMIN 3.9 g/dL (3.4-5.0); ALKALINE PHOSPHATASE 92 U/L (46-116); ANION GAP 15.5 mEq/L (7-13); ASPARTATE AMNIOTRANSFERASE,AST 26 U/L (15-37); BILIRUBIN TOTAL 0.9 mg/dL (0.2-1.0); BLOOD UREA NITROGEN,BUN 7 mg/dL (7-18); BUN/CREATININE RATIO 6.9 (No establ ref range); CARBON DIOXIDE,CO2 26 mmol/L (21-32); CHLORIDE,CL 100 mmol/L (98-107); CREATININE 1.02 mg/dL (0.55-1.02); EST CRCL DRUG DOSING (CG) 83.52 mL/min; GLUCOSE RANDOM 109 mg/dL (70-99); LIPASE 25 U/L (16-77); MAGNESIUM 1.7 mg/dL (1.8-2.4); POTASSIUM,K 3.5 mmol/L (3.5-5.1); PROTEIN TOTAL,TP 7.5 g/dL (6.4-8.2); SODIUM,NA 138 mmol/L (136-145)
[2025-02-03 09:11] LABS: ESTIMATED GFR 75 mL/min (>=60); ETHANOL BLOOD MEDICAL < 3 mg/dL (0)
[2025-02-03 09:12] LABS: HCG QUALITATIVE,SERUM NEGATIVE (NEGATIVE)
[2025-02-03 09:20] LABS: BACTERIA,URINE MODERATE /HPF (0-FEW/HPF); EPITHELIAL CELLS,URINE MANY /HPF (NOT SEEN); RBC,URINE 40-50 /HPF (0-5); WBC,URINE 20-30 /HPF (0-5/HPF)
[2025-02-03] MEDS ORDERED: Ketorolac 30 MG/ML SDV ONE (10:12)
== END 2025-02-03 10:07 | disposition home or self-care (01) ==
LOC: DL.ED 08:31
DX: M94.0 Chondrocostal junction syndrome [Tietze] (principal); N30.00 Acute cystitis without hematuria; E66.9 Obesity, unspecified; Z68.31 Body mass index [BMI] 31.0-31.9, adult; Z88.0 Allergy status to penicillin; Z79.899 Other long term (current) drug therapy
CPT/HCPCS: 36415; 71046; 80053; 80305; 80307; 81001; 83690; 83735; 84484; 84703; 85025; 87086; 93005; 93010; 96374; 99284; 99285; J1885

== ENCOUNTER 2025-02-03 22:43 | Emergency (ER) | payer MEDICAID ==
[2025-02-03 22:54] VITALS: BP 139/90; PULSE 83
[2025-02-03] MEDS: Ondansetron 4 MG Tab.DIS PO ONE (23:13)
[2025-02-03] MEDS: Nitrofurantoin Monohydrate/Macrocrystalline 100 MG Cap PO ONE (23:13)
== END 2025-02-03 23:17 | disposition home or self-care (01) ==
LOC: DL.ED 22:43
DX: N39.0 Urinary tract infection, site not specified (principal); R11.0 Nausea; Z88.0 Allergy status to penicillin; Z79.899 Other long term (current) drug therapy
CPT/HCPCS: 99284; A9270